=== PATIENT | female | born 1995 | race Caucasian/White ===

== ENCOUNTER 2016-12-12 13:12 | Outpatient (CLI) | payer MEDICAID ==
[~2016-12-12] VITALS: Ht 157.5 cm; Wt 50.3 kg
[2016-12-12 13:22] VITALS: BP 116/64; PULSE 72; RESP 20; Ht 157.5 cm; Wt 50.3 kg
[2016-12-12] MEDS ORDERED: PRENAT PO (13:25)
[2016-12-12] MEDS ORDERED: IRON1TAB77 PO (13:26)
[2016-12-12] MEDS: LACTATED RINGER'S 1,000 ML IV PRN ×2 (14:18→16:01)
[2016-12-12 14:30] LABS: ADD SCAN DIFF NO
[2016-12-12 14:32] LABS: BASOPHILS % 0.2 % (0.0-2.0); EOSINOPHILS % 0.7 % (0.0-7.0); HEMATOCRIT 36.2 % (37.0-47.0); LYMPHOCYTES # 1.2 10^3/ul (0.8-2.9); LYMPHOCYTES % 19.3 % (15.0-51.0); MEAN CORPUSCULAR HEMOGLOBIN 32.8 pg (29.0-33.0); MEAN CORPUSCULAR HGB CONC 33.1 g/dl (32.0-37.0); MEAN CORPUSCULAR VOLUME 98.9 fl (82.0-101.0); MEAN PLATELET VOLUME 10.8 fl (7.4-10.4); MONOCYTE # 0.8 10^3/ul (0.3-0.9); MONOCYTES % 13.9 % (0.0-11.0); NEUTROPHIL # 3.8 10^3/ul (1.6-7.5); NEUTROPHILS % 63.2 % (39.0-77.0); PLATELET COUNT 238 10^3/UL (140-415); RED BLOOD COUNT 3.66 10^6/ul (4.20-5.40); RED CELL DISTRIBUTION WIDTH 11.9 % (11.5-14.5)
[2016-12-12 14:38] LABS: ADD UMIC YES; URINE BILIRUBIN (Dip) 1+ (NEGATIVE); URINE BLOOD (Dip) NEGATIVE (NEGATIVE); URINE COLOR YELLOW (YELLOW); URINE GLUCOSE (Dip) NEGATIVE (NEGATIVE); URINE KETONES (Dip) TRACE (NEGATIVE); URINE LEUKOCYTE ESTERASE (Dip) TRACE (NEGATIVE); URINE NITRITE (Dip) NEGATIVE (NEGATIVE); URINE TOTAL PROTEIN (Dip) NEGATIVE (NEGATIVE); URINE UROBILINOGEN (Dip) 1.0 E.U./dL (0.1-1.0)
[2016-12-12 14:45] LABS: ALBUMIN 3.4 g/dl (3.3-4.9); ALBUMIN/GLOBULIN RATIO 1.03; BILIRUBIN,INDIRECT 0.2 mg/dl (0-1.1); BILIRUBIN,TOTAL 0.2 mg/dl (0.2-1.3); CALCIUM 8.8 mg/dl (8.4-10.2); CREATININE 0.51 mg/dl (0.44-1.00); POTASSIUM 4.1 mmol/L (3.5-5.1); TOTAL PROTEIN 6.7 g/dl (6.1-8.1)
[2016-12-12 14:47] LABS: ICTOTEST NEGATIVE (NEGATIVE)
[2016-12-12 14:49] LABS: BACTERIA,URINE RARE; SQUAMOUS EPITHELIAL CELL,UR MODERATE; URINE RBCS NONE SEEN /HPF (0)
--- NOTE | 2016-12-12 15:23 | RADRPT ---
PROCEDURE: CERVICAL LENGTH ULTRASOUND CLINICAL INDICATION: labor at 21 weeks gestational age. TECHNIQUE: Trans-vaginal imaging of the cervical canal was performed utilizing hutson-scale imaging. Sagittal and transverse images were obtained. Trans-abdominal images were also obtained. The radha ges were reviewed on a PACS workstation. COMPARISON: None. FINDINGS: There is a single live intrauterine . heart rate is 146 beats per minute. Position is cephalic and placenta is posterior grade 1. There is no placenta previa. The cervix is closed with a length of 3.6 cm. IMPRESSION: 1. Cervical length is 3.6 cm. RPTAT: QQ .Nestor Auguste MD, MD Date Time Electronically viewed and signed by .Nestor Auguste MD, on 12/12/2016 15:22 .R/
--- NOTE | 2016-12-12 17:04 | TRIAGE ---
OB Triage Datetime Report Generated by CPN: 12/12/2016 17:04 Datetime: 12/12/2016 16:01 Labor Evaluation Frequency: 0 Monitor Mode: External Pain Assessment Pain Scale: 0 Pain Presence: None/Denies Pain Type: N/A Pain Goal: 0 Vaginal Exam Membrane Status: Intact Datetime: 12/12/2016 15:00 Labor Evaluation Frequency: 0 Monitor Mode: External Pain Assessment Pain Scale: 0 Pain Type: N/A Pain Goal: 0 Vaginal Exam Membrane Status: Intact Datetime: 12/12/2016 14:00 Labor Evaluation Frequency: 0 Monitor Mode: External Heart Rate FHR Baseline Rate: 135 Monitor Mode: External US FHR Baseline Changes: No Baseline Change Variability: Moderate 6-25 bpm Accelerations: 15X15 Decelerations: None Category: Category I Pain Assessment Pain Scale: 6 Pain Presence: Constant Pain Type: Ache Pain Location: Head Pain Goal: 0 Datetime: 12/12/2016 13:30 Stage of : OB Triage Assessment Type: Triage EGA: 21.6 Maternal Assessment Level of Consciousness: Fully Conscious DTR's/Clonus: DTRs 2+; No Clonus Headache: Generalized Blurred Vision: No Respiratory Effort: Unlabored; Regular Rhythm; Equal Expansion Nausea/Vomiting: Denies RUQ Epigastric Pain: Denies Lower Extremities Edema: None Degree: None Upper Extremities Edema: None Degree: None Facial Edema: None Temperature Route: Axillary Fall Risk Assessment History of Falling: (0) No Secondary Diagnosis: (0) No Ambulatory Aid: (0) Bedrest/Nurse Assist IV Therapy: (0) No Gait: (0) Normal/Bedrest/Immobile Mental Status: (0) Oriented to Own Ability Fall Score: 0 Fall Risk Score Definition: No Risk: No action required Datetime: 12/12/2016 13:18 Stage of : OB Triage Headache: Generalized Monitor Mode: External Monitor Mode: External US Pain Assessment Pain Scale: 6 Pain Presence: Constant Pain Type: Ache Pain Location: Head Pain Goal: 0 Vaginal Exam Membrane Status: Intact Datetime: 12/12/2016 13:15 Time of Arrival: 12/12/2016 13:08 Arrived By: Stretcher Arrived From: Home Chief Complaint: DIARRHEA, HEADACHE, BODY ACHE Movement: Present Contractions: Denies/Absent Rupture of Membranes: Denies Vaginal Bleeding: None Vaginal Discharge: Denies Recent Sexual Intercouse: Denies Abdominal Trauma: Not Applicable Patient Complaints: Other Time Provider Notified: 12/12/2016 13:52 Provider Notified: DR. PAREDES Initial Plan: DOLLY JARRELL
--- NOTE | 2016-12-12 17:14 | QN ---
Documentation Comment 21-year-old with IUP at 21 weeks and 6 days with care with Dr. Gonzalez presented with complaint of headache and nausea and vomiting started 3 4 days ago as well as diarrhea and body aches. Patient had an episode of chills. Denies any fever, sick contact, leaking of fluid, vaginal bleeding, or decreased movement. Patient had episodes of nausea and vomiting today. She reports that she had some epigastric pain that currently resolved. Next currently had headache and body ache. physical examination. General appearance: Alert and oriented 4. Does not appear to be in any acute distress. Abdomen: Soft, gravid, fundal height consistent with gestational age Extremities: No calf tenderness, no click no edema Lungs: Clear to auscultation bilaterally CV: RRR Hematology - 72 Hrs Test 12/12/16 14:15 White Blood Count 6.010^3/ul (4.8-10.8) Red Blood Count 3.6610^6/ul (4.20-5.40) L Hemoglobin 12.0g/dl (12.0-16.0) Hematocrit 36.2% (37.0-47.0) L Mean Corpuscular Volume 98.9fl (82.0-101.0) Mean Corpuscular Hemoglobin 32.8pg (29.0-33.0) Mean Corpuscular Hemoglobin Concent 33.1g/dl (32.0-37.0) Red Cell Distribution Width 11.9% (11.5-14.5) Platelet Count 43510^3/UL (140-415) Mean Platelet Volume 10.8fl (7.4-10.4) H Neutrophils % 63.2% (39.0-77.0) Lymphocytes % 19.3% (15.0-51.0) Monocytes % 13.9% (0.0-11.0) H Eosinophils % 0.7% (0.0-7.0) Basophils % 0.2% (0.0-2.0) Nucleated Red Blood Cells % 0.0/100WBC (0.0-0.0) Neutrophils # 3.810^3/ul (1.6-7.5) Lymphocytes # 1.210^3/ul (0.8-2.9) Monocytes # 0.810^3/ul (0.3-0.9) Eosinophils # 0.010^3/ul (0.0-0.5) Basophils # 0.010^3/ul (0.0-0.1) Nucleated Red Blood Cells # 0.010^3/ul (0.0-0.0) Chemistry Test 12/12/16 14:15 Sodium Level 137mmol/L (135-144) Potassium Level 4.1mmol/L (3.5-5.1) Chloride Level 105mmol/L (97-110) Carbon Dioxide Level 25mmol/L (21-31) Anion Gap 11 (8-16) Blood Urea Nitrogen 8mg/dl (7-20) Creatinine 0.51mg/dl (0.44-1.00) Glucose Level 78mg/dl (70-220) Calcium Level 8.8mg/dl (8.4-10.2) Total Bilirubin 0.2mg/dl (0.2-1.3) Direct Bilirubin 0.00mg/dl (0.00-0.20) Indirect Bilirubin 0.2mg/dl (0-1.1) Aspartate Amino Transf (AST/SGOT) 99IU/L (15-46) H Alanine Aminotransferase (ALT/SGPT) 90IU/L (13-69) H Alkaline Phosphatase 106IU/L (42-121) Total Protein 6.7g/dl (6.1-8.1) Albumin 3.4g/dl (3.3-4.9) Globulin 3.30g/dl (1.3-3.2) H Albumin/Globulin Ratio 1.03 PROCEDURE: CERVICAL LENGTH ULTRASOUND CLINICAL INDICATION: labor at 21 weeks gestational age. TECHNIQUE: Trans-vaginal imaging of the cervical canal was performed utilizing hutson-scale imaging. Sagittal and transverse images were obtained. Trans-abdominal images were also obtained. The images were reviewed on a PACS workstation. COMPARISON: None. FINDINGS: There is a single live intrauterine . heart rate is 146 beats per minute. Position is cephalic and placenta is posterior grade 1. There is no placenta previa. The cervix is closed with a length of 3.6 cm. IMPRESSION: 1. Cervical length is 3.6 cm. Assessment: IUP at 21 weeks and 6 days Diarrhea, nausea, headache, body ache, symptoms related to viral gastroenteritis. Symptoms significantly improved with IV hydration and Tylenol No evidence of labor Plan: DC home Follow-up with her OB clinic in 3-4 days Prescription for Reglan 5 mg p.o. as needed nausea and vomiting as well as Imodium given. Advise about adequate hydration Return to triage if she has any fever, chills, increased symptoms, leaking of fluid, vaginal bleeding, or any other concerns. Patient verbalized understanding. MARIA ELENA HAMPTON MD Dec 12, 2016 17:14
== END 2016-12-12 16:55 | disposition home or self-care (01) ==
LOC: OBT 13:12 → L-D 13:14 → OBT 16:55
PROVIDERS: ATTEND Obstetrics & Gynecology
DX: O21.2 Late vomiting of pregnancy (principal); O26.892 Other specified pregnancy related conditions, second trimester; R68.83 Chills (without fever); Z3A.21 21 weeks gestation of pregnancy
CPT/HCPCS: 36415; 76817; 80053; 81001; 85025; 96360; 96361; Z7500; 81003; G0463

== ENCOUNTER 2016-12-24 13:43 | Emergency (ER) | payer MEDICAID ==
[~2016-12-24] VITALS: Ht 157.5 cm; Wt 50.9 kg
[~2016-12-24 13:43] MED LIST: IRON1TAB77 PO; PRENAT PO
[2016-12-24 13:56] VITALS: Ht 157.5 cm; Wt 50.9 kg
--- NOTE | 2016-12-24 14:23 | EN ---
Date/Time of Note Date/Time of Note DATE: 12/24/16 TIME: 14:17 ER Progress Note 21-year-old female patient, A1, with no significant past medical history presents to the ED complaining of itchiness all over her body that started 1 week ago, however denies having a rash. Patient reports that her RESEARCH TECHNICIAN is Dr. Obrien. States that her last menses was on July 13, 2016. Reports that she is about 23 weeks and 4 days into her . Denies any vaginal bleeding, vaginal discharge, nausea, vomiting, diarrhea, pelvic pain, abdominal pain, chest pain, shortness of breath. Patient was initially seen here at [facility] however will be sent to ED2 for further evaluation and treatment. Patient is hemodynamically stable. MARTHA SEYMOUR PA-C Dec 24, 2016 14:23
[2016-12-24 15:23] LABS: ADD SCAN DIFF NO
[2016-12-24 15:26] LABS: BASOPHIL # 0.1 10^3/ul (0.0-0.1); BASOPHILS % 0.5 % (0.0-2.0); EOSINOPHILS # 0.1 10^3/ul (0.0-0.5); EOSINOPHILS % 1.1 % (0.0-7.0); HEMATOCRIT 39.1 % (37.0-47.0); HEMOGLOBIN 12.3 g/dl (12.0-16.0); LYMPHOCYTES # 1.9 10^3/ul (0.8-2.9); LYMPHOCYTES % 19.4 % (15.0-51.0); MEAN CORPUSCULAR HGB CONC 31.5 g/dl (32.0-37.0); MEAN CORPUSCULAR VOLUME 98.5 fl (82.0-101.0); MEAN PLATELET VOLUME 10.9 fl (7.4-10.4); MONOCYTES % 9.6 % (0.0-11.0); NEUTROPHIL # 6.5 10^3/ul (1.6-7.5); NEUTROPHILS % 64.7 % (39.0-77.0); PLATELET COUNT 278 10^3/UL (140-415); RED BLOOD COUNT 3.97 10^6/ul (4.20-5.40); RED CELL DISTRIBUTION WIDTH 11.8 % (11.5-14.5)
[2016-12-24 15:26] LABS: ADD UMIC YES; UR BILIRUBIN (Dip) NEGATIVE (NEGATIVE); UR BLOOD (Dip) NEGATIVE (NEGATIVE); UR COLOR LT. YELLOW (YELLOW); UR GLUCOSE (Dip) NEGATIVE (NEGATIVE); UR KETONES (Dip) NEGATIVE (NEGATIVE); UR LEUKOCYTE ESTERASE (Dip) 1+ (NEGATIVE); UR NITRITE (Dip) NEGATIVE (NEGATIVE); UR TOTAL PROTEIN (Dip) NEGATIVE (NEGATIVE); UR UROBILINOGEN (Dip) 0.2 E.U./dL (0.1-1.0)
--- NOTE | 2016-12-24 15:33 | RADRPT ---
PROCEDURE: US OB. CLINICAL INDICATION: Size and dates , rash TECHNIQUE: Multiple sonographic images of the pelvis and gravid uterus were obtained. The images were reviewed on a PACS workstation. COMPARISON: No prior studies are available for comparison. FINDINGS: There is a single viable intrauterine gestation. Cardiac activity is present with 137 beats per min [place]. There is a vertex/variable presentation. The placenta is posterior. There is no evidence for an abruption or placenta previa. There is a normal amount of amniotic fluid with a MVP = 3.7 cm. Measurements were made in order to determine age. The results are as follows: BPD =5.6 cm HC =20.3 cm AC =18.4 cm FL =4.0 cm Estimated gestational age of approximately 22 weeks and 6 days based on ultrasound measurements. Clinical age: 23 weeks and 4 days. The estimated date of delivery is 04/23/17, based on ultrasound measurements. The EFW = 552 g, 18%, based on LMP age. RPTAT: AA IMPRESSION: Single viable intrauterine gestation of approximately 22 weeks and 6 days based on ultrasound measu rements. .Jeferson Kearns MD, MD Date Time Electronically viewed and signed by .Jeferson Kearns MD, on 12/24/2016 15:33 .S/
--- NOTE | 2016-12-24 15:34 | RADRPT ---
PROCEDURE: US Abdomen. CLINICAL INDICATION: abdominal pain TECHNIQUE: Multiple real-time images were acquired of the patient's right upper quadrant abdomen a nd retroperitoneum utilizing a high resolution transducer. COMPARISON: None FINDINGS: The liver demonstrates normal echogenicity. The liver is normal in size and no focal solid lesions are seen. The liver measures 12.6 cm in length. The portal vein is patent with normal direction of f low. No intrahepatic biliary dilatation is seen. No gallstones are identified within the gallbladder. There is layering echogenic material within th e gallbladder, consistent with sludge. There is no pericholecystic fluid or gallbladder wall thicke jose eduardo. The common bile duct measures 2 mm in maximal dimension. The visualized portions of the pancreas are unremarkable. The tail of the pancreas is not seen. No free fluid is identified. The right kidney is normal in size, and demonstrate normal echogenicity and cortical thickness. The right kidney measures 10.1 cm in long dimension. There is mild right-sided hydronephrosis. There a re no kidney stones. RPTAT: AA IMPRESSION: Moderate amount of sludge within the gallbladder. No evidence of gallbladder wall thickening or per icholecystic fluid. Mild right-sided hydronephrosis. .Jeferson Kearns MD, MD Date Time Electronically viewed and signed by .Jeferson Kearns MD, on 12/24/2016 15:34 .S/
[2016-12-24 15:35] LABS: ALBUMIN 3.6 g/dl (3.3-4.9)
[2016-12-24 15:38] LABS: BILIRUBIN,INDIRECT 0.3 mg/dl (0-1.1); BILIRUBIN,TOTAL 0.3 mg/dl (0.2-1.3); CREATININE 0.49 mg/dl (0.44-1.00); TOTAL PROTEIN 7.2 g/dl (6.1-8.1)
[2016-12-24 15:39] LABS: CALCIUM 9.1 mg/dl (8.4-10.2)
[2016-12-24 15:41] LABS: UR CLARITY SLIGHTLY CLOUDY (CLEAR)
[2016-12-24 15:42] LABS: UR BACTERIA FEW; UR SQUAMOUS EPITHELIAL CELL MODERATE; URINE RBCS NONE SEEN /HPF (0)
[2016-12-24] MEDS ORDERED: COLE625T2 PO (17:03)
[2016-12-24] MEDS ORDERED: URSO300C3 PO (17:03)
--- NOTE | 2016-12-24 17:09 | ERD ---
ER Documentation Chief Complaint Date/Time DATE: 12/24/16 TIME: 17:07 Chief Complaint ITCHINESS ALL OVER THE BODY HPI This 21-year-old female presents with itching over her whole body for the last few days. She denies any rashes. She is approximately 23 weeks by dates. Her OB provider is [facility] under Dr. Obrien. She denies any vaginal bleeding or abdominal pain, vomiting, cough, shortness of breath or chest pain. She is a G2 para 0 per ROS All systems reviewed and are negative except as per history of present illness. Medications Home Meds Active Scripts Colesevelam Hcl* (Welchol*) 625 Mg Tablet, 625 MG PO QID, #120 TAB Prov:LAISHA LAWSON MD 12/24/16 Ursodiol* (Ursodiol*) 300 Mg Capsule, 300 MG PO TID, #60 CAP Prov:LAISHA LAWSON MD 12/24/16 Reported Medications Iron,Carbonyl/Ascorbic Acid (IRON 100-VITAMIN C TABLET) 1 Each Tablet, 1 EACH PO , TAB 12/12/16 Multivit/Min/Fol Ac/Iron/Pren* ( S*) 1 Tab Tab, 1 TAB PO DAILY, TAB 12/12/16 Allergies Allergies: Coded Allergies: No Known Allergy (Unverified , 12/12/16) PMhx/Soc History of Surgery: No Anesthesia Reaction: No Hx Neurological Disorder: No Hx Respiratory Disorders: No Hx Cardiac Disorders: No Hx Psychiatric Problems: No Hx Miscellaneous Medical Probl: Yes (miscarriage 2010. A1) Hx Alcohol Use: No Hx Substance Use: No Physical Exam Vitals Vital Signs Date Time Temp Pulse Resp B/P Pulse Ox O2 Delivery O2 Flow Rate FiO2 12/24/16 13:56 97.8 72 18 112/60 98 Physical Exam Const: [] Alert, not ill-appearing. Head: Atraumatic Eyes: Normal Conjunctiva. No obvious icterus. ENT: Normal External Ears, Nose and Mouth. Neck: Full range of motion..~ No meningismus. Resp: Clear to auscultation bilaterally Cardio: Regular rate and rhythm, no murmurs Abd: Soft, non tender, non distended. Normal bowel sounds. There is a mass consistent with the second trimester . There is no tenderness and no Malave sign no tenderness at McBurney's point. Skin: No petechiae or rashes Back: No midline or flank tenderness Ext: No cyanosis, or edema Neur: Awake and alert Psych: Normal Mood and Affect Result Diagram: 12/24/16 1458 12/24/16 1458 Results 24 hrs Laboratory Tests Test 12/24/16 14:56 12/24/16 14:58 Urine Color LT. YELLOW Urine Clarity SLIGHTLY CLOUDY Urine pH 7.0 Urine Specific Sheldon 1.010 Urine Ketones NEGATIVE Urine Nitrite NEGATIVE Urine Bilirubin NEGATIVE Urine Urobilinogen 0.2 E.U./dL Urine Leukocyte Esterase 1+ Urine Microscopic RBC NONE SEEN/HPF Urine Microscopic WBC 5-10/HPF Urine Squamous Epithelial Cells MODERATE Urine Bacteria FEW Urine Yeast FEW Urine Hemoglobin NEGATIVE Urine Glucose NEGATIVE% Urine Total Protein NEGATIVE White Blood Count 10.010^3/ul Red Blood Count 3.9710^6/ul Hemoglobin 12.3g/dl Hematocrit 39.1% Mean Corpuscular Volume 98.5fl Mean Corpuscular Hemoglobin 31.0pg Mean Corpuscular Hemoglobin Concent 31.5g/dl Red Cell Distribution Width 11.8% Platelet Count 58064^3/UL Mean Platelet Volume 10.9fl Neutrophils % 64.7% Lymphocytes % 19.4% Monocytes % 9.6% Eosinophils % 1.1% Basophils % 0.5% Nucleated Red Blood Cells % 0.0/100WBC Neutrophils # 6.510^3/ul Lymphocytes # 1.910^3/ul Monocytes # 1.010^3/ul Eosinophils # 0.110^3/ul Basophils # 0.110^3/ul Nucleated Red Blood Cells # 0.010^3/ul Sodium Level 136mmol/L Potassium Level 4.0mmol/L Chloride Level 104mmol/L Carbon Dioxide Level 23mmol/L Anion Gap 13 Blood Urea Nitrogen 9mg/dl Creatinine 0.49mg/dl Glucose Level 89mg/dl Calcium Level 9.1mg/dl Total Bilirubin 0.3mg/dl Direct Bilirubin 0.00mg/dl Indirect Bilirubin 0.3mg/dl Aspartate Amino Transf (AST/SGOT) 167IU/L Alanine Aminotransferase (ALT/SGPT) 173IU/L Alkaline Phosphatase 108IU/L Total Protein 7.2g/dl Albumin 3.6g/dl Globulin 3.60g/dl Albumin/Globulin Ratio 1.00 Lipase 59U/L Procedures/MDM AST and ALT are elevated in the high 100s. CBC is normal. Urine shows trace leukocytes but shows many epithelial cells. Right upper quadrant ultrasound shows gallbladder sludge without evidence of cholecystitis or obstruction or gallstones. OB ultrasound shows a normal-appearing [address] Smith was called to discuss the case. He is recommending starting WelChol 625 mg every 6 hours and ursodiol 300 mg 3 times a day for presumptive treatment of cholestasis of . Is also requesting patient be transferred to labor and delivery for nonstress test. Patient will be advised to follow-up with her OB provider this week, otherwise further guidance will depend on labor and delivery's communication with Dr. Obrien. No current signs or symptoms of acute bacterial cholecystitis, acute abdomen, acute complications of . Departure Diagnosis: Primary Impression: Cholestasis during Additional Impression: Itching Condition: Stable Patient Instructions: : Your Second Trimester Changes Referrals: CAROL GRIGGS MD Additional Instructions: Examinations today show possible cholestasis of . Go to labor and delivery today for baby monitoring. See Dr. Ingram / care this week for follow-up. LAISHA LAWSON MD Dec 24, 2016 17:09
[2016-12-28 17:25] LABS: CHENODEOXYCHOLIC ACID 19.4 umol/L (< OR = 3.1); DEOXYCHOLIC ACID 1.8 umol/L (< OR = 2.4); TOTAL BILE ACIDS 54.2 umol/L (< OR = 6.8)
== END 2016-12-24 17:15 | disposition left against medical advice (07) ==
LOC: FTE 13:43
DX: O99.612 Diseases of the digestive system complicating pregnancy, second trimester (principal); L29.9 Pruritus, unspecified; K83.1 Obstruction of bile duct; Z3A.22 22 weeks gestation of pregnancy
CPT/HCPCS: 76705; 76805; 80053; 81001; 83690; 83789; 85025; Z7502; 81003

== ENCOUNTER 2016-12-24 17:33 | Outpatient (CLI) | payer MEDICAID ==
[~2016-12-24] VITALS: Ht 157.5 cm; Wt 51.0 kg
[~2016-12-24 17:33] MED LIST changes: +COLE625T2 PO; +URSO300C3 PO
[2016-12-24 17:54] VITALS: Ht 157.5 cm; Wt 51.0 kg
[2016-12-24 17:55] VITALS: BP 113/70; PULSE 56
--- NOTE | 2016-12-24 18:34 | PN ---
Date/Time of Note Date/Time of Note DATE: 12/24/16 TIME: 18:31 OB Subjective Subjective Subjective Patient is a 2 para 0 at 23.4 weeks of gestation She was seen in the ER and evaluated for cholestasis CBC and CMP was done in the ER She is here for NST OB Objective Objective Objective Patient reports positive movement, no leaking fluid, no vaginal bleeding, no contractions Patient with elevated/abnormal liver function tests HEENT: WNL Heart: Rhythm Normal Lungs: Clear, Equal Abdomen: WNL Extremities: Normal Reflexes: Normal Cervical Dilatation: None Heart Rate: 140's Accelerations: Accelerations Present Decelerations: No Decelerations Varibility: Moderate Contractions on Admission: None OB Assessment/Plan Other Assessment: 23+4 weeks of gestation rule out cholestasis Other plan: Bile acids to be drawn Patient to follow-up with her OB on , December 27, 2016 MARY ALICE DELGADO MD Dec 24, 2016 18:34
== END 2016-12-24 18:35 | disposition home or self-care (01) ==
LOC: OBT 17:33 → L-D 17:34 → OBT 18:35
PROVIDERS: ATTEND Obstetrics & Gynecology
DX: O26.892 Other specified pregnancy related conditions, second trimester (principal); R94.5 Abnormal results of liver function studies; O26.832 Pregnancy related renal disease, second trimester; Z3A.23 23 weeks gestation of pregnancy; N13.30 Unspecified hydronephrosis; O99.612 Diseases of the digestive system complicating pregnancy, second trimester; K82.8 Other specified diseases of gallbladder
CPT/HCPCS: 83789; Z7500; G0463

== ENCOUNTER 2017-01-24 12:21 | Outpatient (CLI) | payer MEDICAID ==
[~2017-01-24] VITALS: Ht 157.5 cm; Wt 51.9 kg
[2017-01-24 12:42] VITALS: BP 113/53; PULSE 65; RESP 20; Ht 157.5 cm; Wt 51.9 kg
--- NOTE | 2017-01-24 14:48 | RADRPT ---
PROCEDURE: US OB biophysical profile. CLINICAL INDICATION: decreased movements, pain TECHNIQUE: Multiple sonographic images of the pelvis were obtained. The images were reviewed on a PACS workstation. COMPARISON: 12/24/16 FINDINGS: There is a single viable intrauterine gestation. Cardiac activity is present with 137 beats per min suzie. There is a vertex presentation. The placenta is posterior. There is no evidence of placental abruption. There is a increased amount of amniotic fluid with an LOURDES = 21.9 cm. Biophysical profile: movement 2/2 tone 2/2. breathing 2/2 LOURDES 2/2 Total 04/09 RPTAT: AA . IMPRESSION: Normal biophysical profile. Mild polyhydramnios. . .Jeferson Kearns MD, Date Time Electronically viewed and signed by .Jeferson Kearns MD, MD on 01/24/2017 14:48 .S/
--- NOTE | 2017-01-24 15:07 | QN ---
Documentation Comment Sent in from clinic for cholestasis(Bile Acids>70) NST R BPP 04/09 will follow in 3 days CAROL GRIGGS MD January 24, 2017 15:07
== END 2017-01-24 15:00 | disposition home or self-care (01) ==
LOC: OBT 12:21 → L-D 12:23 → OBT 15:00
PROVIDERS: ATTEND Obstetrics & Gynecology
DX: O26.619 Liver and biliary tract disorders in pregnancy, unspecified trimester (principal); K83.1 Obstruction of bile duct; Z3A.00 Weeks of gestation of pregnancy not specified
CPT/HCPCS: 76818; Z7500; G0463

== ENCOUNTER 2017-01-28 08:43 | Outpatient (CLI) | payer MEDICAID ==
[~2017-01-28] VITALS: Ht 157.5 cm; Wt 48.2 kg
[2017-01-28 08:49] VITALS: BP 114/54; PULSE 69; RESP 18
--- NOTE | 2017-01-28 09:40 | RADRPT ---
PROCEDURE: OB ultrasound for biophysical profile CLINICAL INDICATION: Cholestasis TECHNIQUE: Multiple sonographic images of the pelvis were obtained. Transabdominal views of the g ravid uterus are available for review. The images were reviewed on a PACS workstation. COMPARISON: None FINDINGS: breathing movement = 2/2 tone = 2/2 motion = 2/2 LOURDES = 2/2 LOURDES = 19.1 cm Single live intrauterine with cardiac activity of 148 bpm. position is cephal ic. The placenta is posterior. IMPRESSION: 1. Single live intrauterine gestation. 2. Biophysical profile = 8. 3. LOURDES = 19.1 cm. RPTAT: HH .Terra Milligan MD, MD Date Time Electronically viewed and signed by .Terra Milligan MD, on 01/28/2017 09:40 .G/
--- NOTE | 2017-01-28 11:05 | PN ---
Date/Time of Note Date/Time of Note DATE: 01/28/17 TIME: 11:00 OB Subjective Subjective Subjective Patient is a 21-year-old 2 para 0 at 27+1 weeks of gestation diagnosed with cholestasis in Last bile acid level 79.7 Patient is currently on 2 different medications She presents today for NST and BPP She reports occasional contractions, positive movement, no leaking fluid, no vaginal bleeding OB Objective Objective Objective PROCEDURE: OB ultrasound for biophysical profile CLINICAL INDICATION: Cholestasis TECHNIQUE: Multiple sonographic images of the pelvis were obtained. Transabdominal views of the gravid uterus are available for review. The images were reviewed on a PACS workstation. COMPARISON: None FINDINGS: breathing movement = 2/2 tone = 2/2 motion = 2/2 LOURDES = 2/2 LOURDES = 19.1 cm Single live intrauterine with cardiac activity of 148 bpm. position is cephalic. The placenta is posterior. IMPRESSION: 1. Single live intrauterine gestation. 2. Biophysical profile = 8/8. 3. LOURDES = 19.1 cm. RPTAT: HH .Terra Milligan MD, Date Time Electronically viewed and signed by .Terra Milligan MD, MD on 01/28/2017 09 :40 .G/ CC: BERNARDO GEIGER MD HEENT: WNL Heart: Rhythm Normal Lungs: Clear, Equal Abdomen: WNL Extremities: Normal Reflexes: Normal Heart Rate: 140's Accelerations: Accelerations Present Decelerations: No Decelerations Varibility: Moderate Contractions on Admission: 6-10 Minutes Apart OB Assessment/Plan Other Assessment: 27+ weeks of gestation with cholestasis of Patient presents with contractions She is here for NST and BPP Other plan: We will obtain fibronectin test Patient should follow-up with her SHOE CLEANER in 2-3 days Patient to return for repeat NST and biophysical profile in 2 days in triage MARY ALICE DELGADO MD January 28, 2017 11:05
[2017-01-28] MEDS ORDERED: BETAMET NA PHOS/AC(6 MG/ML) 5ML INJ IM ONE (12:20)
[2017-01-28] MEDS: LACTATED RINGER'S 1,000 ML IV SCH ×2 (13:25→13:43)
--- NOTE | 2017-01-28 13:44 | RADRPT ---
PROCEDURE: Limited obstetric ultrasound CLINICAL INDICATION: Pain , PTL TECHNIQUE: Multiple transverse and longitudinal grayscale images of the pelvis were obtained silva sabdominally and transvaginally.. COMPARISON: same day FINDINGS: The cervix is closed with a length of 3.8 cm. There is a single viable intrauterine gestation. Cardiac activity is present with 148 beats per min suzie. The presentation is vertex. The placenta is posterior. There is no evidence for an abruption or placenta previa. RPTAT: AA IMPRESSION: Cervix length measures 3.8 cm. .Jeferson Kearns MD, Date Time Electronically viewed and signed by .Jeferson Kearns MD, on 01/28/2017 13:43 .S/
[2017-01-28] MEDS ORDERED: TERBUTALINE 1 MG/ML INJ SC ONE (14:00)
--- NOTE | 2017-01-28 15:47 | TRIAGE ---
OB Triage Datetime Report Generated by CPN: 01/28/2017 15:47 Datetime: 01/28/2017 15:31 Labor Evaluation Frequency: 0 Monitor Mode: External Quality: Mild Pattern: Normal: <= 5 Contractions in 10 Minutes Heart Rate FHR Baseline Rate: 145 FHR Baseline Changes: No Baseline Change Variability: Moderate 6-25 bpm Accelerations: 15X15 Decelerations: Variable Category: Category I Datetime: 01/28/2017 15:10 Monitor Mode: External Monitor Mode: External US Datetime: 01/28/2017 15:00 Labor Evaluation Frequency: x2 Monitor Mode: External Duration (sec)2399: 60-80 Quality: Mild Resting Tone [place]: Relaxed Contraction Comments: PT DENIES FEELING ANY CTX Heart Rate FHR Baseline Rate: 140 FHR Baseline Changes: No Baseline Change Variability: Moderate 6-25 bpm Accelerations: 15X15 Decelerations: Variable Pain Assessment Pain Scale: 0 Pain Presence: None/Denies Pain Type: N/A Datetime: 01/28/2017 14:40 Monitor Mode: External US Datetime: 01/28/2017 14:00 Labor Evaluation Frequency: 2-7 Monitor Mode: External Duration (sec)2399: 50-100 Quality: Mild Resting Tone [place]: Relaxed Contraction Comments: PT REPORTS NOT FEELING ANY CTX IN PAST HOUR. Heart Rate FHR Baseline Rate: 140 FHR Baseline Changes: No Baseline Change Variability: Moderate 6-25 bpm Accelerations: 15X15 Decelerations: None Datetime: 01/28/2017 13:02 Labor Evaluation Frequency: 2-10 Monitor Mode: External Duration (sec)2399: 50-70 Quality: Mild Resting Tone [place]: Relaxed Contraction Comments: PT REPORTS FEELING ONE CONTRACTIONS IN PAST HOUR. Monitor Mode: External US Comments: NOT ON MONITOR DUE TO MOVEMENT Datetime: 01/28/2017 11:45 Stage of : OB Triage Contraction Comments: PT REPORTS FEELING ONE CONTRACTION SINCE 1110. Datetime: 01/28/2017 10:40 Stage of : OB Triage Datetime: 01/28/2017 10:15 Labor Evaluation Frequency: OCCASIONAL Monitor Mode: External Duration (sec)2399: 60-70 Quality: Mild Pattern: Normal: <= 5 Contractions in 10 Minutes Resting Tone [place]: Relaxed Contraction Comments: PT DENIES FEELING UC'S Heart Rate FHR Baseline Rate: 145 Monitor Mode: External US FHR Baseline Changes: No Baseline Change Variability: Moderate 6-25 bpm Accelerations: 10X10 Decelerations: None Category: Category I Datetime: 01/28/2017 08:56 Stage of : OB Triage Assessment Type: Triage Maternal Assessment Level of Consciousness: Fully Conscious DTR's/Clonus: DTRs 2+; No Clonus Headache: Denies Blurred Vision: No Respiratory Effort: Unlabored; Regular Rhythm; Equal Expansion Breath Sounds, Left: Clear and Equal Breath Sounds, Right: Clear and Equal Nausea/Vomiting: Denies RUQ Epigastric Pain: Denies Lower Extremities Edema: None Upper Extremities Edema: None Facial Edema: None Temperature Route: Oral Fall Risk Assessment History of Falling: (0) No Secondary Diagnosis: (0) No Ambulatory Aid: (0) Bedrest/Nurse Assist IV Therapy: (0) No Gait: (0) Normal/Bedrest/Immobile Mental Status: (0) Oriented to Own Ability Fall Score: 0 Fall Risk Score Definition: No Risk: No action required Pain Assessment Pain Scale: 0 Pain Presence: None/Denies Pain Type: N/A Pain Goal: 2 Datetime: 01/28/2017 08:53 Time of Arrival: 01/28/2017 08:40 EGA: 27.1 Arrived By: Ambulatory Arrived From: Home Chief Complaint: BPP, NST FOR CHOLESTASIS Movement: Present Contractions: Denies/Absent Rupture of Membranes: Denies Vaginal Bleeding: None Vaginal Discharge: Denies Recent Sexual Intercouse: Denies Abdominal Trauma: Not Applicable Patient Complaints: Other Time Provider Notified: 01/28/2017 10:13 Provider Notified: MD GEIGER Initial Plan: BPP, _ NST Datetime: 01/24/2017 13:55 Labor Evaluation Frequency: 5-7 Monitor Mode: External Duration (sec)2399: 40-70 Pattern: Normal: <= 5 Contractions in 10 Minutes Heart Rate FHR Baseline Rate: 130 Monitor Mode: External US Variability: Moderate 6-25 bpm Accelerations: 15X15 Decelerations: None Category: Category I Datetime: 01/24/2017 12:49 Time of Arrival: 01/24/2017 12:11 EGA: 26.4 Arrived By: Ambulatory Arrived From: Home Chief Complaint: CHOLESTASIS FOLLOW UP Movement: Present Rupture of Membranes: Denies Vaginal Bleeding: None Vaginal Discharge: Denies Recent Sexual Intercouse: Denies Abdominal Trauma: Not Applicable Initial Plan: BPP, NST Datetime: 12/24/2016 18:26 Stage of : OB Triage Datetime: 12/24/2016 17:50 Stage of : OB Triage Assessment Type: Triage Maternal Assessment Level of Consciousness: Fully Conscious DTR's/Clonus: DTRs 2+; No Clonus Headache: Denies Blurred Vision: No Respiratory Effort: Unlabored; Regular Rhythm; Equal Expansion Breath Sounds, Left: Clear and Equal Breath Sounds, Right: Clear and Equal Nausea/Vomiting: Denies RUQ Epigastric Pain: Denies Facial Edema: None Temperature Route: Axillary Fall Risk Assessment History of Falling: (0) No Secondary Diagnosis: (0) No Ambulatory Aid: (0) Bedrest/Nurse Assist IV Therapy: (0) No Gait: (0) Normal/Bedrest/Immobile Mental Status: (0) Oriented to Own Ability Fall Score: 0 Fall Risk Score Definition: No Risk: No action required Labor Evaluation Frequency: 0 Monitor Mode: External Resting Tone [place]: Relaxed Heart Rate FHR Baseline Rate: 135 Monitor Mode: External US Variability: Moderate 6-25 bpm Decelerations: None Category: Category I Pain Assessment Pain Scale: 0 Pain Presence: None/Denies Pain Type: N/A Pain Goal: 3 Pain Relief Measures: Comfort Measures Datetime: 12/24/2016 17:49 Time of Arrival: 12/24/2016 17:20 EGA: 22.1 Arrived By: Ambulatory Arrived From: Emergency Dept Chief Complaint: SENT FROM ER AFTER EVAL FOR CHOLESTASIS, REFERRED FOR FM X 20 MIN, CALL TO DR CAM ADAIR ORDERS RECEIVED Movement: Present Contractions: Denies/Absent Rupture of Membranes: Denies Vaginal Bleeding: None Vaginal Discharge: Denies Recent Sexual Intercouse: Denies Abdominal Trauma: Not Applicable Time Provider Notified: 12/24/2016 18:26 Provider Notified: DANNY Initial Plan: MONITOR X 20 MIN, DRAW BILE ACIDS Datetime: 12/12/2016 13:30 EGA: 20.3 Fall Score: 0 Fall Risk Score Definition: No Risk: No action required
== END 2017-01-28 15:40 | disposition home or self-care (01) ==
LOC: L-D 08:43 → OBT 08:43
PROVIDERS: ATTEND Obstetrics & Gynecology
DX: O26.612 Liver and biliary tract disorders in pregnancy, second trimester (principal); K83.1 Obstruction of bile duct; Z3A.27 27 weeks gestation of pregnancy; O26.892 Other specified pregnancy related conditions, second trimester
CPT/HCPCS: 36415; 76817; 76818; 82731; 96360; 96361; 96372; J0702; J3105; Z7500; G0463

== ENCOUNTER 2017-01-29 12:06 | Outpatient (CLI) | payer MEDICAID ==
[~2017-01-29] VITALS: Ht 157.5 cm; Wt 53.7 kg
[2017-01-29 12:44] VITALS: BP 110/53; PULSE 86; Ht 157.5 cm; Wt 53.7 kg
[2017-01-29] MEDS ORDERED: BETAMET NA PHOS/AC(6 MG/ML) 5ML INJ IM ONE (13:00)
--- NOTE | 2017-01-29 15:54 | RADRPT ---
PROCEDURE: Limited obstetric ultrasound CLINICAL INDICATION: Pain TECHNIQUE: Multiple transverse and longitudinal grayscale images of the pelvis were obtained tra nsvaginally.. COMPARISON: 01/28/2017 FINDINGS: The cervix is closed with a length of 3.3 cm. RPTAT: AA IMPRESSION: Cervix length measures 3.3 cm. .Jeferson Kearns MD, MD Date Time Electronically viewed and signed by .Jeferson Kearns MD, MD on 01/29/2017 15:53 .S/
--- NOTE | 2017-01-29 17:50 | CONS ---
Date/Time of Note Date/Time of Note DATE: 01/29/17 TIME: 16:31 Consultation Date/Type/Reason Admit Date/Time January 29, 2017 OB triage consult Reason for Consultation This patient is a 21 years old 2 para 0 1 with estimated date of confinement of April 28, 2017 which makes her 27 weeks and 2 days. She received a dose of betamethasone yesterday and then will remove another dose of betamethasone today However in the triage area she began to have contractures. Due to scattered contractions she was monitored for 4 hours. We did feel some cramping on examination of abdomen She had a cervical length measured yesterday which was 3.8 cm Today on examination cervix was closed and appeared to be about 3 cm thick. The head was high. Membrane was intact heart tone appeared to be normal with fairly good variability no deceleration . We performed another cervical length today which came back 3.3 centimeters Current Medications Medications (Trade) Dose Ordered Sig/Nomi Route PRN Reason Start Time Stop Time Status Last Admin Dose Admin Betamethasone Acet/Betameth SodPhos (Celestone Soluspan) 12 mg ONCE ONCE IM 01/29/17 13:00 01/29/17 13:06 DC 01/29/17 13:51 12 MG Constitutional: No chills, No diaphoresis, No disoriented, No febrile, No improved, No no complaints, No other, No poor po, No requiring IVF, No requiring O2 Eyes: No discharge, No no complaints, No other, No pain, No redness, No visual change ENT: No bleeding, No congestion, No discharge, No dysphagia, No no complaints, No other, No pain, No sore throat Respiratory: No cough, No no complaints, No other, No pain, No pleuritic pain, No shortness of breath, No sputum, No wheezing Cardiovascular: No chest pain, No edema, No lightheadedness, No no complaints, No orthopenea, No other, No palpitations, No paroxysmal nocturnal dyspnea Gastrointestinal: No blood, No constipation, No decreased appetite, No diarrhea , No flatus, No nausea, No no complaints, No other, No pain, No passing stool, No vomiting Genitourinary: other (As I mentioned her cervix was closed fairly long no evidence of rupture of membranes), No bleeding, No discharge, No dysuria, No flank pain, No hematuria, No no complaints Musculoskeletal: No back pain, No bone/joint pain, No neck pain, No no complaints, No other, No restricted range of motion, No swelling Skin: No bruising, No erythema, No laceration, No no complaints, No other, No pruritis, No rash, No skin lesions Neurologic: No confusion, No dizziness, No focal-weakness, No headache, No no complaints, No other, No seizure, No syncope Endocrine: No dry skin, No no complaints, No other, No polydypsia, No polyuria , No temp intolerance Additional Comments Due to lack of further changes in the cervix and the fact that with hydration and terbutaline her contractions stopped; she was discharged home to return to the clinic in 7 days for follow-up She is recommended to return to the triage in case of labor or rupture of membranes or bleeding Social History Smoking Status: Never smoker Exam/Review of Systems Vital Signs Vitals Vital Signs Date Time Temp Pulse Resp B/P Pulse Ox O2 Delivery O2 Flow Rate FiO2 01/29/17 12:44 97.9 86 110/53 ISSA MORGAN MD January 29, 2017 17:50
== END 2017-01-29 16:40 | disposition home or self-care (01) ==
LOC: OBT 12:06 → L-D 12:07 → OBT 16:40
PROVIDERS: ATTEND Obstetrics & Gynecology
DX: O62.8 Other abnormalities of forces of labor (principal); Z3A.27 27 weeks gestation of pregnancy
CPT/HCPCS: 76817; 96372; J0702; Z7500; G0463

== ENCOUNTER 2017-01-31 10:00 | Outpatient (CLI) | payer BC, MEDICAID ==
[~2017-01-31] VITALS: Ht 157.5 cm; Wt 52.9 kg
[2017-01-31 10:06] VITALS: Ht 157.5 cm; Wt 52.9 kg
[2017-01-31] MEDS ORDERED: MAGNESIUM SULFATE 20 GM/500 ML 500 ML IV SCH (10:30)
--- NOTE | 2017-01-31 11:01 | RADRPT ---
PROCEDURE: OB ultrasound for biophysical profile CLINICAL INDICATION: Cholestasis TECHNIQUE: Multiple sonographic images of the pelvis were obtained. Transabdominal views of the g ravid uterus are available for review. The images were reviewed on a PACS workstation. COMPARISON: None FINDINGS: breathing movement = 2/2 tone = 2/2 motion = 2/2 LOURDES = 2/2 LOURDES = 15.0 cm Single live intrauterine with cardiac activity of 141 bpm. position is cephal ic. The placenta is posterior. IMPRESSION: 1. Single live intrauterine gestation. 2. Biophysical profile = 8/8. 3. LOURDES = 15.0 cm. RPTAT: HH .Terra Milligan MD, MD Date Time Electronically viewed and signed by .Terra Milligan MD, on 01/31/2017 11:01 .G/
--- NOTE | 2017-01-31 12:22 | TRIAGE ---
OB Triage Datetime Report Generated by CPN: 01/31/2017 12:22 Datetime: 01/31/2017 11:15 Labor Evaluation Frequency: x3 contractions noted in last hour Monitor Mode: External Duration (sec)2399: 60-100 Quality: Mild Pattern: Normal: <= 5 Contractions in 10 Minutes Resting Tone [place]: Relaxed Contraction Comments: Pt states some mild discomfort in abdominal area "once an hour". Heart Rate FHR Baseline Rate: 150 Monitor Mode: External US FHR Baseline Changes: No Baseline Change Variability: Moderate 6-25 bpm Accelerations: 15X15 Decelerations: None Category: Category I Comments: Appropriate for GA Pain Presence: None/Denies Datetime: 01/31/2017 10:15 Assessment Type: Triage Maternal Assessment Level of Consciousness: Fully Conscious DTR's/Clonus: DTRs 2+; No Clonus Headache: Denies Blurred Vision: No Respiratory Effort: Unlabored; Regular Rhythm; Equal Expansion Breath Sounds, Left: Clear and Equal Breath Sounds, Right: Clear and Equal Nausea/Vomiting: Denies RUQ Epigastric Pain: Denies Lower Extremities Edema: None Degree: None Upper Extremities Edema: None Degree: None Facial Edema: None Fall Risk Assessment History of Falling: (0) No Secondary Diagnosis: (0) No Ambulatory Aid: (0) Bedrest/Nurse Assist IV Therapy: (0) No Gait: (0) Normal/Bedrest/Immobile Mental Status: (0) Oriented to Own Ability Fall Score: 0 Fall Risk Score Definition: No Risk: No action required Datetime: 01/31/2017 10:07 Time of Arrival: 01/31/2017 09:55 EGA: 27.4 Arrived By: Ambulatory Arrived From: Home Chief Complaint: Follow up Cholestasis Movement: Present Contractions: Denies/Absent Rupture of Membranes: Denies Vaginal Bleeding: None Vaginal Discharge: Denies Recent Sexual Intercouse: Denies Abdominal Trauma: Not Applicable Patient Complaints: None Time Provider Notified: 01/31/2017 11:17 Provider Notified: Micah Initial Plan: NST, BPP/LOURDES Datetime: 01/31/2017 10:05 Stage of : OB Triage Datetime: 01/29/2017 16:26 Stage of : OB Triage Datetime: 01/29/2017 16:14 Stage of : OB Triage Datetime: 01/29/2017 16:07 Labor Evaluation Frequency: 0 Monitor Mode: External Resting Tone [place]: Relaxed Contraction Comments: DENIES FEELING, NONE NOTED Heart Rate FHR Baseline Rate: 145 Monitor Mode: External US Variability: Moderate 6-25 bpm Decelerations: None Category: Category I Pain Assessment Pain Scale: 0 Pain Presence: None/Denies Pain Type: N/A Pain Goal: 3 Pain Relief Measures: Comfort Measures Datetime: 01/29/2017 15:22 Stage of : OB Triage Datetime: 01/29/2017 15:11 Labor Evaluation Frequency: 6-8 Monitor Mode: External Duration (sec)2399: 30-40 Pattern: Normal: <= 5 Contractions in 10 Minutes Resting Tone [place]: Relaxed Contraction Comments: STATES FEELS MILDLY Heart Rate FHR Baseline Rate: 135 Monitor Mode: External US Variability: Moderate 6-25 bpm Accelerations: 10X10 Decelerations: None Category: Category I Pain Assessment Pain Scale: 2 Pain Presence: Intermittent Pain Type: Cramping Pain Location: Abdomen Pain Goal: 3 Pain Relief Measures: Comfort Measures Datetime: 01/29/2017 14:25 Labor Evaluation Frequency: 7-15 Monitor Mode: External Duration (sec)2399: 15-30 Quality: Mild Pattern: Normal: <= 5 Contractions in 10 Minutes Resting Tone [place]: Relaxed Contraction Comments: DENIES FEELING, Heart Rate FHR Baseline Rate: 135 Monitor Mode: External US Variability: Moderate 6-25 bpm Decelerations: None Category: Category I Pain Assessment Pain Scale: 1 Pain Presence: None/Denies Pain Type: N/A Pain Goal: 3 Pain Relief Measures: Comfort Measures Datetime: 01/29/2017 13:39 Stage of : OB Triage Datetime: 01/29/2017 13:02 Stage of : OB Triage Assessment Type: Triage Maternal Assessment Level of Consciousness: Fully Conscious DTR's/Clonus: DTRs 2+; No Clonus Headache: Denies Blurred Vision: No Respiratory Effort: Unlabored; Regular Rhythm; Equal Expansion Breath Sounds, Left: Clear and Equal Breath Sounds, Right: Clear and Equal Nausea/Vomiting: Denies RUQ Epigastric Pain: Denies Facial Edema: None Temperature Route: Axillary Fall Risk Assessment History of Falling: (0) No Secondary Diagnosis: (0) No Ambulatory Aid: (0) Bedrest/Nurse Assist IV Therapy: (0) No Gait: (0) Normal/Bedrest/Immobile Mental Status: (0) Oriented to Own Ability Fall Score: 0 Fall Risk Score Definition: No Risk: No action required Labor Evaluation Frequency: 0 Monitor Mode: External Resting Tone [place]: Relaxed Monitor Mode: External US Pain Assessment Pain Scale: 0 Pain Presence: None/Denies Pain Type: N/A Pain Goal: 3 Pain Relief Measures: Comfort Measures Datetime: 01/29/2017 13:01 Time of Arrival: 01/29/2017 12:03 EGA: 27.2 Arrived By: Ambulatory Arrived From: Home Chief Complaint: FOLLOW UP BETAMETHASONE INJECTION #2 Movement: Present Contractions: Denies/Absent Rupture of Membranes: Denies Vaginal Discharge: Denies Recent Sexual Intercouse: Denies Abdominal Trauma: Not Applicable Time Provider Notified: 01/29/2017 13:39 Provider Notified: REICHE Initial Plan: MONITOR, BETAMETHASONE INJECTION, CL Datetime: 01/28/2017 08:56 Fall Score: 0 Fall Risk Score Definition: No Risk: No action required Datetime: 01/28/2017 08:53 EGA: 27.1 Datetime: 01/24/2017 12:49 EGA: 26.4 Contractions: Occasional Time Provider Notified: 01/31/2017 11:17 Provider Notified: Micah Datetime: 12/24/2016 17:50 Fall Score: 0 Fall Risk Score Definition: No Risk: No action required Datetime: 12/24/2016 17:49 EGA: 22.1 Datetime: 12/12/2016 13:30 EGA: 20.3 Fall Score: 0 Fall Risk Score Definition: No Risk: No action required
--- NOTE | 2017-01-31 13:40 | CONS ---
Date/Time of Note Date/Time of Note DATE: 01/31/17 TIME: 13:34 Consultation Date/Type/Reason Admit Date/Time January 31, 2007 OB triage consult follow-up visit Initial Consult Date This patient is a 21 years old 2 para 0 1 with estimated date of confinement of April 28, 2017 which makes her 27 weeks and 4 days. She came to the triage for follow-up on her cholestasis condition during this Today her main complaint is pruritus on her lower extremity especially on her feet currently she is taking ursodiol 300 mg 3 times daily. She also help pruritus of hands and chest On examination she is a fairly stable condition in her Her vital signs appears to be normal. Her blood pressure 119/59, pulse rate 73 , respiration 18, and temperature 98.3. At this time she does not have much of the contractions. We did an ultrasound study. The report is single live intrauterine cardiac activity of 1 41 bpm in vertex presentation her biophysical profile is reported 8 over. Her LOURDES is 15 cm Current Medications Medications (Trade) Dose Ordered Sig/Nomi Route PRN Reason Start Time Stop Time Status Last Admin Dose Admin Magnesium Sulfate (Magnesium Sulfate 20 Gm/500 ml) 500 ml @ 50 mls/hr Q10H IV 01/31/17 10:30 01/31/17 10:36 DC Reason for Consultation With these positive finding patient was discharged home to be followed in the clinic she will continue taking her medication for her cholestasis. End of dictation ISSA MORGAN MD Jan 31, 2017 13:40
== END 2017-01-31 12:15 | disposition home or self-care (01) ==
LOC: OBT 10:00 → L-D 10:01 → OBT 12:15
PROVIDERS: ATTEND Obstetrics & Gynecology
DX: O26.612 Liver and biliary tract disorders in pregnancy, second trimester (principal); K83.1 Obstruction of bile duct; Z3A.27 27 weeks gestation of pregnancy
CPT/HCPCS: 76818; Z7500; G0463

== ENCOUNTER 2017-02-04 10:59 | Outpatient (CLI) | payer BC ==
[~2017-02-04] VITALS: Ht 157.5 cm; Wt 52.7 kg
[2017-02-04 12:22] VITALS: Ht 157.5 cm; Wt 52.7 kg
[2017-02-04 12:23] VITALS: BP 138/63; PULSE 86; RESP 18
--- NOTE | 2017-02-04 13:18 | RADRPT ---
PROCEDURE: US OB biophysical profile. CLINICAL INDICATION: evaluation TECHNIQUE: Multiple sonographic images of the pelvis were obtained. The images were reviewed on a PACS workstation. COMPARISON: Obstetrical ultrasound from 01/31/2017 FINDINGS: There is a single viable intrauterine gestation. Cardiac activity is present with 126 beats per min suzie. There is a vertex presentation. The placenta is posterior. There is no evidence of placental abruption. There is a normal amount of amniotic fluid with an LOURDES = 11.5 cm. Biophysical profile: movement 2/2 tone 2/2. breathing 2/2 LOURDES 2/2 Total 04/09 RPTAT: AA . IMPRESSION: Normal biophysical profile. Physician Justin Date Time Electronically viewed and signed by Physician Justin on 02/04/2017 13:18 /
--- NOTE | 2017-02-04 14:53 | QN ---
Documentation Comment iup 29 weeks cholestasis vss exam wnl us wnl nst reacive a/p iup 29 weeks cholestasis of dc waterproof TOPHER SYKES MD Feb 04, 2017 14:53
== END 2017-02-04 14:25 | disposition home or self-care (01) ==
LOC: OBT 10:59 → L-D 11:04 → OBT 14:25
PROVIDERS: ATTEND Obstetrics & Gynecology
DX: O26.613 Liver and biliary tract disorders in pregnancy, third trimester (principal); K83.1 Obstruction of bile duct; Z3A.29 29 weeks gestation of pregnancy
CPT/HCPCS: 76818; Z7500; G0463

== ENCOUNTER 2017-02-07 10:17 | Outpatient (CLI) | payer BC ==
[~2017-02-07] VITALS: Ht 157.5 cm; Wt 53.1 kg
[2017-02-07 10:28] VITALS: Ht 157.5 cm; Wt 53.1 kg
[2017-02-07 10:29] VITALS: BP 120/64; PULSE 83
--- NOTE | 2017-02-07 11:42 | RADRPT ---
PROCEDURE: OB ultrasound for biophysical profile CLINICAL INDICATION: Cholestasis TECHNIQUE: Multiple sonographic images of the pelvis were obtained. Transabdominal views of the g ravid uterus are available for review. The images were reviewed on a PACS workstation. COMPARISON: Biophysical profile dated 02/04/2017 FINDINGS: breathing movement = 2/2 tone = 2/2 motion = 2/2 LOURDES = 2/2 LOURDES = 13.2 cm Single live intrauterine with cardiac activity of 148 bpm. position is cephal ic. The placenta is posterior. IMPRESSION: 1. Single live intrauterine gestation. 2. Biophysical profile = 04/09. 3. LOURDES = 13.2 cm. RPTAT: HH .Terra Milligan MD, MD Date Time Electronically viewed and signed by .Terra Milligan MD, on 02/07/2017 11:42 .G/
[2017-02-07] MEDS ORDERED: TERBUTALINE 1 MG/ML INJ SC ONE ×2 (12:00→15:00)
[2017-02-07] MEDS ORDERED: LACTATED RINGER'S 1,000 ML IV SCH (12:00)
[2017-02-07 12:39] LABS: ADD SCAN DIFF NO
[2017-02-07 12:49] LABS: ABNORMAL IP MESSAGE 1; HEMATOCRIT 36.8 % (37.0-47.0); HEMOGLOBIN 12.4 g/dl (12.0-16.0); MEAN CORPUSCULAR HEMOGLOBIN 32.3 pg (29.0-33.0); MEAN CORPUSCULAR HGB CONC 33.7 g/dl (32.0-37.0); MEAN CORPUSCULAR VOLUME 95.8 fl (82.0-101.0); MEAN PLATELET VOLUME 10.8 fl (7.4-10.4); MONOCYTE # 1.2 10^3/ul (0.3-0.9); PLATELET COUNT 318 10^3/UL (140-415); RED BLOOD COUNT 3.84 10^6/ul (4.20-5.40); RED CELL DISTRIBUTION WIDTH 11.9 % (11.5-14.5); WHITE BLOOD COUNT 16.6 10^3/ul (4.8-10.8)
[2017-02-07 12:56] LABS: ADD UMIC YES; URINE BILIRUBIN (Dip) NEGATIVE (NEGATIVE); URINE BLOOD (Dip) NEGATIVE (NEGATIVE); URINE COLOR LT. YELLOW (YELLOW); URINE GLUCOSE (Dip) NEGATIVE (NEGATIVE); URINE KETONES (Dip) NEGATIVE (NEGATIVE); URINE LEUKOCYTE ESTERASE (Dip) 1+ (NEGATIVE); URINE NITRITE (Dip) NEGATIVE (NEGATIVE); URINE TOTAL PROTEIN (Dip) NEGATIVE (NEGATIVE); URINE UROBILINOGEN (Dip) 0.2 E.U./dL (0.1-1.0)
[2017-02-07 13:01] LABS: ALBUMIN/GLOBULIN RATIO 1.34
[2017-02-07 13:04] LABS: BILIRUBIN,INDIRECT 0.1 mg/dl (0-1.1); BILIRUBIN,TOTAL 0.1 mg/dl (0.2-1.3); CALCIUM 9.5 mg/dl (8.4-10.2); CREATININE 0.45 mg/dl (0.44-1.00); POTASSIUM 3.6 mmol/L (3.5-5.1); TOTAL PROTEIN 6.8 g/dl (6.1-8.1)
[2017-02-07 13:05] LABS: ALBUMIN 3.9 g/dl (3.3-4.9)
[2017-02-07 13:25] LABS: BACTERIA,URINE RARE; URINE RBCS NONE SEEN /HPF (0)
--- NOTE | 2017-02-07 14:05 | RADRPT ---
PROCEDURE: Limited obstetric ultrasound CLINICAL INDICATION: Pain , labor TECHNIQUE: Multiple transverse and longitudinal grayscale images of the pelvis were obtained silva sabdominally and transvaginally.. COMPARISON: same day FINDINGS: The cervix is closed with a length of 3.0 cm. There is a single viable intrauterine gestation. Cardiac activity is present with 139 beats per min suzie. There is a vertex presentation. The placenta is posterior. There is no evidence for an abruption or placenta previa. RPTAT: AA IMPRESSION: Cervix length measures 3.0 cm. .Jeferson Kearns MD, Date Time Electronically viewed and signed by .Jeferson Kearns MD, on 02/07/2017 14:05 .S/
[2017-02-07 14:32] LABS: LYMPHOCYTES # 2.3 10^3/ul (0.8-2.9); NEUTROPHIL # 12.5 10^3/ul (1.6-7.5); PLATELET ESTIMATE PLT APPEAR ADEQUATE
--- NOTE | 2017-02-07 20:00 | CONS ---
Date/Time of Note Date/Time of Note DATE: 02/07/17 TIME: 19:50 Consultation Date/Type/Reason Admit Date/Time February 07, 2017 OB triage consult Reason for Consultation This patient is a 21 years old primigravida with estimated date of confinement of April 28, 2017 which makes her 28 weeks and 4 days She developed cholestasis of and is placed on Actigall 300 mg every 8 hours . . On physical examination, her general vital signs were basically within normal limits with blood pressure of 120/64 pulse rate 83, respiration 18, and temperature 95.1 She was not having any contractions , abdomen was soft heart tone was normal. Laboratory Tests Test 02/07/17 11:55 02/07/17 12:14 Urine Color LT. YELLOW Urine Clarity CLEAR Urine pH 6.0 Urine Specific [place] <=1.005 Urine Ketones NEGATIVE Urine Nitrite NEGATIVE Urine Bilirubin NEGATIVE Urine Urobilinogen 0.2 E.U./dL Urine Leukocyte Esterase 1+ Urine Microscopic RBC NONE SEEN/HPF Urine Microscopic WBC 0-2/HPF Urine Bacteria RARE Urine Hemoglobin NEGATIVE Urine Glucose NEGATIVE% Urine Total Protein NEGATIVE White Blood Count 16.610^3/ul Red Blood Count 3.8410^6/ul Hemoglobin 12.4g/dl Hematocrit 36.8% Mean Corpuscular Volume 95.8fl Mean Corpuscular Hemoglobin 32.3pg Mean Corpuscular Hemoglobin Concent 33.7g/dl Red Cell Distribution Width 11.9% Platelet Count 95912^3/UL Mean Platelet Volume 10.8fl Neutrophils % 75.0% Lymphocytes % 14.0% Monocytes % 7.0% Eosinophils % 0.0% Basophils % 0.0% Nucleated Red Blood Cells % 0.0/100WBC Neutrophils # 12.510^3/ul Lymphocytes # 2.310^3/ul Monocytes # 1.210^3/ul Eosinophils # 0.010^3/ul Basophils # 0.010^3/ul Nucleated Red Blood Cells # 0.010^3/ul Platelet Estimate PLT APPEAR ADEQUATE Sodium Level 138mmol/L Potassium Level 3.6mmol/L Chloride Level 108mmol/L Carbon Dioxide Level 24mmol/L Anion Gap 10 Blood Urea Nitrogen 6mg/dl Creatinine 0.45mg/dl Glucose Level 73mg/dl Calcium Level 9.5mg/dl Total Bilirubin 0.1mg/dl Direct Bilirubin 0.00mg/dl Indirect Bilirubin 0.1mg/dl Aspartate Amino Transf (AST/SGOT) 18IU/L Alanine Aminotransferase (ALT/SGPT) 32IU/L Alkaline Phosphatase 102IU/L Total Protein 6.8g/dl Albumin 3.9g/dl Globulin 2.90g/dl Albumin/Globulin Ratio 1.34 Current Medications Medications (Trade) Dose Ordered Sig/Nomi Route PRN Reason Start Time Stop Time Status Last Admin Dose Admin Lactated Ringer's (Lr) 1,000 ml @ 125 mls/hr Q8H IV 02/07/17 12:00 02/07/17 17:27 DC 02/07/17 12:11 125 MLS/HR Terbutaline Sulfate (Brethine) 0.25 mg ONCE ONCE SC 02/07/17 12:00 02/07/17 12:03 DC 02/07/17 12:12 0.25 MG Terbutaline Sulfate (Brethine) 0.25 mg ONCE ONCE SC 02/07/17 15:00 02/07/17 15:01 DC 02/07/17 15:07 0.25 MG Constitutional: No chills, No diaphoresis, No disoriented, No febrile, No improved, No no complaints, No other, No poor po, No requiring IVF, No requiring O2 Eyes: No discharge, No no complaints, No other, No pain, No redness, No visual change ENT: No bleeding, No congestion, No discharge, No dysphagia, No no complaints, No other, No pain, No sore throat Respiratory: No cough, No no complaints, No other, No pain, No pleuritic pain, No shortness of breath, No sputum, No wheezing Cardiovascular: No chest pain, No edema, No lightheadedness, No no complaints, No orthopenea, No other, No palpitations, No paroxysmal nocturnal dyspnea Gastrointestinal: No blood, No constipation, No decreased appetite, No diarrhea , No flatus, No nausea, No no complaints, No other, No pain, No passing stool, No vomiting Genitourinary: other (Pelvic exam was not performed), No bleeding, No discharge, No dysuria, No flank pain, No hematuria, No no complaints Musculoskeletal: No back pain, No bone/joint pain, No neck pain, No no complaints, No other, No restricted range of motion, No swelling Skin: other (No edema of hands or legs the palm of the hands and the soles of the feet did not show any erythema or pruritus), No bruising, No erythema, No laceration, No no complaints, No pruritis, No rash, No skin lesions Neurologic: other (Knee-jerk reflex were), seizure, No confusion, No dizziness, No focal-weakness, No headache, No no complaints , No syncope Endocrine: other, No dry skin, No no complaints, No polydypsia, No polyuria, No temp intolerance Additional Comments Her lab studies were basically normal : CBC was within normal limits, liver profile, electrolytes were all normal.. Urinalysis was completely normal no evidence of proteinuria or UTI. On ultrasound study a single live intrauterine with heart activity 148 bpm ,cephalic presentation LOURDES was 13.2 cm. Biophysical profile was 04/09 Cervical length was reported as 3 cm Disposition.: In view of completely normal physical and laboratory on ultrasound study patient was discharged home to be followed in her clinic and to return if any complications , and for follow-up of her cholestasis of . Social History Smoking Status: Never smoker Exam/Review of Systems Vital Signs Vitals Vital Signs Date Time Temp Pulse Resp B/P Pulse Ox O2 Delivery O2 Flow Rate FiO2 02/07/17 10:29 98.1 83 120/64 Results Result Diagram: 02/07/17 1214 02/07/17 1214 Results 24 hrs Laboratory Tests Test 02/07/17 11:55 02/07/17 12:14 Urine Color LT. YELLOW Urine Clarity CLEAR Urine pH 6.0 Urine Specific [place] <=1.005 L Urine Ketones NEGATIVE Urine Nitrite NEGATIVE Urine Bilirubin NEGATIVE Urine Urobilinogen 0.2 E.U./dL Urine Leukocyte Esterase 1+ H Urine Microscopic RBC NONE SEEN Urine Microscopic WBC 0-2 Urine Bacteria RARE Urine Hemoglobin NEGATIVE Urine Glucose NEGATIVE Urine Total Protein NEGATIVE White Blood Count 16.6 #H Red Blood Count 3.84 L Hemoglobin 12.4 Hematocrit 36.8 L Mean Corpuscular Volume 95.8 Mean Corpuscular Hemoglobin 32.3 Mean Corpuscular Hemoglobin Concent 33.7 Red Cell Distribution Width 11.9 Platelet Count 318 Mean Platelet Volume 10.8 H Neutrophils % 75.0 Lymphocytes % 14.0 L Monocytes % 7.0 Eosinophils % 0.0 Basophils % 0.0 Nucleated Red Blood Cells % 0.0 Neutrophils # 12.5 H Lymphocytes # 2.3 Monocytes # 1.2 H Eosinophils # 0.0 Basophils # 0.0 Nucleated Red Blood Cells # 0.0 Platelet Estimate PLT APPEAR ADEQUATE Sodium Level 138 Potassium Level 3.6 Chloride Level 108 Carbon Dioxide Level 24 Anion Gap 10 Blood Urea Nitrogen 6 L Creatinine 0.45 Glucose Level 73 Calcium Level 9.5 Total Bilirubin 0.1 L Direct Bilirubin 0.00 Indirect Bilirubin 0.1 Aspartate Amino Transf (AST/SGOT) 18 Alanine Aminotransferase (ALT/SGPT) 32 Alkaline Phosphatase 102 Total Protein 6.8 Albumin 3.9 Globulin 2.90 Albumin/Globulin Ratio 1.34 ISSA MORGAN MD Feb 07, 2017 20:00
== END 2017-02-07 17:26 | disposition home or self-care (01) ==
LOC: OBT 10:17 → L-D 10:17 → OBT 17:26
PROVIDERS: ATTEND Obstetrics & Gynecology
DX: O26.613 Liver and biliary tract disorders in pregnancy, third trimester (principal); K83.1 Obstruction of bile duct; O60.03 Preterm labor without delivery, third trimester; Z3A.28 28 weeks gestation of pregnancy
CPT/HCPCS: 36415; 76817; 76818; 80053; 81001; 85025; 96360; 96372; J3105; J7120; Z7500; G0463

== ENCOUNTER 2017-02-11 11:21 | Outpatient (CLI) | payer BC ==
[~2017-02-11] VITALS: Ht 157.5 cm; Wt 53.4 kg
[2017-02-11 11:41] VITALS: BP 121/66; PULSE 77; RESP 24; Ht 157.5 cm; Wt 53.4 kg
--- NOTE | 2017-02-11 12:23 | RADRPT ---
PROCEDURE: OB ultrasound for biophysical profile CLINICAL INDICATION: Biophysical profile. . TECHNIQUE: Multiple sonographic images of the pelvis were obtained. Transabdominal 02/07/2017 vie ws are obtained. COMPARISON: 02/07/2017 FINDINGS: Single intrauterine gestation. Presentation: Cephalic. Placenta: Posterior No evidence of placental abruption. No evidence of placenta previa. breathing movement = 2/2 tone = 2/2 motion = 2/2 LOURDES = 2/2 LOURDES = 13.4 cm heart rate: 144 beats per minute IMPRESSION: Single intrauterine gestation. Biophysical profile 04/09 RPTAT: AADD .Freddie Higgins MD, MD Date Time Electronically viewed and signed by .Freddie Higgins MD, on 02/11/2017 12:22 .B/
[2017-02-11] MEDS ORDERED: CALC600T11 PO (13:13)
--- NOTE | 2017-02-11 13:22 | QN ---
Documentation Comment iup 29 weeks cholestasis pt asymptomatic vss nst reactive a/p iup 29 weeks cholestatis dc [place] TOPHER SYKES MD Feb 11, 2017 13:22
--- NOTE | 2017-02-11 13:43 | TRIAGE ---
OB Triage Datetime Report Generated by CPN: 02/11/2017 13:42 Datetime: 02/11/2017 13:41 Stage of : OB Triage Maternal Assessment Level of Consciousness: Fully Conscious DTR's/Clonus: DTRs 2+; No Clonus Headache: Denies Blurred Vision: No Respiratory Effort: Unlabored; Regular Rhythm; Equal Expansion Breath Sounds, Left: Clear and Equal Breath Sounds, Right: Clear and Equal Nausea/Vomiting: Denies RUQ Epigastric Pain: Denies Lower Extremities Edema: None Degree: None Upper Extremities Edema: None Degree: None Facial Edema: None Temperature Route: Axillary Fall Risk Assessment History of Falling: (0) No Secondary Diagnosis: (0) No Ambulatory Aid: (0) Bedrest/Nurse Assist IV Therapy: (0) No Gait: (0) Normal/Bedrest/Immobile Mental Status: (0) Oriented to Own Ability Fall Score: 0 Fall Risk Score Definition: No Risk: No action required Datetime: 02/11/2017 13:09 Time of Arrival: 02/11/2017 11:05 EGA: 29.1 Arrived By: Ambulatory Arrived From: Home Chief Complaint: F/U CHOLESTASIS Movement: Present Contractions: Denies/Absent Rupture of Membranes: Denies Vaginal Bleeding: None Vaginal Discharge: Denies Recent Sexual Intercouse: Denies Abdominal Trauma: Not Applicable Time Provider Notified: 02/11/2017 13:04 Provider Notified: DR. PAREDES Initial Plan: BPP, NST Datetime: 02/07/2017 17:13 Stage of : OB Triage Datetime: 02/07/2017 16:50 Labor Evaluation Frequency: 0 Monitor Mode: External Resting Tone [place]: Relaxed Heart Rate FHR Baseline Rate: 155 Monitor Mode: External US Variability: Moderate 6-25 bpm Decelerations: None Category: Category I Pain Assessment Pain Scale: 0 Pain Presence: None/Denies Pain Type: N/A Pain Goal: 3 Pain Relief Measures: Comfort Measures Datetime: 02/07/2017 16:22 Stage of : OB Triage Datetime: 02/07/2017 15:55 Labor Evaluation Frequency: 0 Monitor Mode: External Quality: Mild Pattern: Normal: <= 5 Contractions in 10 Minutes Resting Tone [place]: Relaxed Heart Rate FHR Baseline Rate: 145 Monitor Mode: External US Variability: Moderate 6-25 bpm Decelerations: None Category: Category I Pain Assessment Pain Scale: 0 Pain Presence: None/Denies Pain Type: N/A Pain Goal: 3 Pain Relief Measures: Comfort Measures Datetime: 02/07/2017 14:43 Stage of : OB Triage Datetime: 02/07/2017 14:30 Labor Evaluation Frequency: 8-10 Monitor Mode: External Duration (sec)2399: 50-70 Pattern: Normal: <= 5 Contractions in 10 Minutes Resting Tone [place]: Relaxed Heart Rate FHR Baseline Rate: 145 Monitor Mode: External US Variability: Moderate 6-25 bpm Accelerations: 10X10 Decelerations: None Category: Category I Pain Assessment Pain Scale: 2 Pain Presence: None/Denies Pain Type: N/A Pain Goal: 3 Pain Relief Measures: Comfort Measures Datetime: 02/07/2017 13:27 Labor Evaluation Frequency: 8-10 Monitor Mode: External Duration (sec)2399: 50-60 Pattern: Normal: <= 5 Contractions in 10 Minutes Resting Tone [place]: Relaxed Heart Rate FHR Baseline Rate: 140 Monitor Mode: External US Variability: Moderate 6-25 bpm Accelerations: 10X10 Decelerations: None Category: Category I Pain Assessment Pain Scale: 2 Pain Presence: Intermittent Pain Type: Cramping Pain Goal: 3 Pain Relief Measures: Comfort Measures Datetime: 02/07/2017 12:36 Labor Evaluation Frequency: 0 Monitor Mode: External Pattern: Normal: <= 5 Contractions in 10 Minutes Resting Tone [place]: Relaxed Heart Rate FHR Baseline Rate: 140 Monitor Mode: External US Variability: Moderate 6-25 bpm Accelerations: 10X10 Decelerations: None Category: Category I Datetime: 02/07/2017 11:40 Labor Evaluation Frequency: IRREG Monitor Mode: External Duration (sec)2399: 50-70 Pattern: Normal: <= 5 Contractions in 10 Minutes Resting Tone [place]: Relaxed Heart Rate FHR Baseline Rate: 135 Monitor Mode: External US Variability: Moderate 6-25 bpm Accelerations: 10X10 Decelerations: None Category: Category I Pain Assessment Pain Scale: 0 Pain Presence: None/Denies Pain Type: N/A Pain Goal: 3 Pain Relief Measures: Comfort Measures Datetime: 02/07/2017 11:29 Stage of : OB Triage Datetime: 02/07/2017 10:45 Stage of : OB Triage Datetime: 02/07/2017 10:25 Stage of : OB Triage Assessment Type: Triage Time of Arrival: 02/07/2017 10:10 EGA: 28.4 Arrived By: Ambulatory Arrived From: Home Chief Complaint: FOLLOW UP BPP/LOURDES CHOLESTASIS Movement: Present Contractions: Occasional Rupture of Membranes: Denies Vaginal Bleeding: None Vaginal Discharge: Denies Recent Sexual Intercouse: Denies Abdominal Trauma: Not Applicable Patient Complaints: Cramping Time Provider Notified: 02/07/2017 10:45 Provider Notified: LENA Initial Plan: MONITOR, BPP/LOURDES, IV HYDRATION, TERB, CBC, CMP, U/A, CL Maternal Assessment Level of Consciousness: Fully Conscious DTR's/Clonus: DTRs 2+; No Clonus Headache: Denies Blurred Vision: No Respiratory Effort: Unlabored; Regular Rhythm; Equal Expansion Breath Sounds, Left: Clear and Equal Breath Sounds, Right: Clear and Equal Nausea/Vomiting: Denies RUQ Epigastric Pain: Denies Facial Edema: None Temperature Route: Axillary Fall Risk Assessment History of Falling: (0) No Secondary Diagnosis: (0) No Ambulatory Aid: (0) Bedrest/Nurse Assist IV Therapy: (0) No Gait: (0) Normal/Bedrest/Immobile Mental Status: (0) Oriented to Own Ability Fall Score: 0 Fall Risk Score Definition: No Risk: No action required Labor Evaluation Frequency: X1 Monitor Mode: External Duration (sec)2399: 50 Quality: Mild Resting Tone [place]: Relaxed Heart Rate FHR Baseline Rate: 135 Monitor Mode: External US Variability: Moderate 6-25 bpm Accelerations: 10X10 Decelerations: None Category: Category I Pain Assessment Pain Scale: 0 Pain Presence: None/Denies Pain Type: N/A Pain Goal: 3 Pain Relief Measures: Comfort Measures Datetime: 02/04/2017 11:34 Stage of : OB Triage Time of Arrival: 02/04/2017 11:34 EGA: 28.1 Chief Complaint: Follow up Cholestasis Movement: Present Contractions: Denies/Absent Rupture of Membranes: Denies Vaginal Bleeding: None Vaginal Discharge: Denies Recent Sexual Intercouse: Denies Abdominal Trauma: Not Applicable Patient Complaints: None Time Provider Notified: 02/04/2017 11:36 Provider Notified: LENA Maternal Assessment Level of Consciousness: Fully Conscious DTR's/Clonus: DTRs 2+; No Clonus Headache: Denies Blurred Vision: No Breath Sounds, Left: Clear and Equal Breath Sounds, Right: Clear and Equal Nausea/Vomiting: Denies RUQ Epigastric Pain: Denies Facial Edema: None Labor Evaluation Frequency: 0 Monitor Mode: External Duration (sec)2399: 0 Resting Tone [place]: Relaxed Heart Rate FHR Baseline Rate: 150 Monitor Mode: External US FHR Baseline Changes: No Baseline Change Variability: Moderate 6-25 bpm Accelerations: 15X15 Decelerations: None Category: Category I Pain Assessment Pain Scale: 0 Pain Presence: None/Denies Pain Type: N/A Pain Goal: 0 Vaginal Exam Membrane Status: Intact Datetime: 01/31/2017 10:15 Fall Score: 0 Fall Risk Score Definition: No Risk: No action required Datetime: 01/31/2017 10:07 EGA: 27.4 Datetime: 01/29/2017 13:02 Fall Score: 0 Fall Risk Score Definition: No Risk: No action required Datetime: 01/29/2017 13:01 EGA: 27.2 Datetime: 01/28/2017 08:56 Fall Score: 0 Fall Risk Score Definition: No Risk: No action required Datetime: 01/28/2017 08:53 EGA: 27.1 Datetime: 01/24/2017 12:49 EGA: 26.4 Datetime: 12/24/2016 17:50 Fall Score: 0 Fall Risk Score Definition: No Risk: No action required Datetime: 12/24/2016 17:49 EGA: 22.1 Datetime: 12/12/2016 13:30 EGA: 20.3 Fall Score: 0 Fall Risk Score Definition: No Risk: No action required
== END 2017-02-11 13:10 | disposition home or self-care (01) ==
LOC: OBT 11:21 → L-D 11:21 → OBT 13:10
PROVIDERS: ATTEND Obstetrics & Gynecology
DX: O26.613 Liver and biliary tract disorders in pregnancy, third trimester (principal); K83.1 Obstruction of bile duct; Z3A.29 29 weeks gestation of pregnancy
CPT/HCPCS: 76818; Z7500; G0463

== ENCOUNTER 2017-02-14 14:57 | Outpatient (CLI) | payer BC ==
[~2017-02-14] VITALS: Ht 157.5 cm; Wt 54.1 kg
[~2017-02-14 14:57] MED LIST changes: +CALC600T11 PO
[2017-02-14 15:10] VITALS: BP 119/64; PULSE 89; RESP 19; Ht 157.5 cm; Wt 54.1 kg
--- NOTE | 2017-02-14 15:48 | RADRPT ---
PROCEDURE: US OB. CLINICAL INDICATION: Size and dates , abdominal pain TECHNIQUE: Multiple sonographic images of the pelvis and gravid uterus were obtained. The images were reviewed on a PACS workstation. COMPARISON: 02/11/17 FINDINGS: There is a single viable intrauterine gestation. Cardiac activity is present with 142 beats per min [place]. There is a vertex presentation. The placenta is posterior. There is no evidence for an abruption or placenta previa. Measurements were made in order to determine age. The results are as follows: BPD =7.4 cm HC =27.3 cm AC =25.4 cm FL =5.6 cm Estimated gestational age of approximately 29 weeks and 4 days based on ultrasound measurements. Clinical age: 29 weeks and 4 days. The estimated date of delivery is 04/28/17, based on ultrasound measurements. The EFW = 1417 g, 36.8%, based on LMP age. RPTAT: AA IMPRESSION: Single viable intrauterine gestation of approximately 29 weeks and 4 days based on ultrasound measu rements. .Jeferson Kearns MD, Date Time Electronically viewed and signed by .Jeferson Kearns MD, on 02/14/2017 15:48 .S/
--- NOTE | 2017-02-14 17:03 | RADRPT ---
PROCEDURE: US OB biophysical profile. CLINICAL INDICATION: decreased movements, abdominal pain TECHNIQUE: Multiple sonographic images of the pelvis were obtained. The images were reviewed on a PACS workstation. COMPARISON: 02/11/2017 FINDINGS: There is a single viable intrauterine gestation. Cardiac activity is present with 142 beats per min [place]. There is a vertex presentation. The placenta is posterior. There is no evidence of placental abruption. There is a normal amount of amniotic fluid with an LOUR[place] = 13.0 cm. Biophysical profile: movement 2/2 tone 2/2. breathing 2/2 LOURDES 2/2 Total 04/09 RPTAT: AA . IMPRESSION: Normal biophysical profile. . .Jeferson Kearns MD, MD Date Time Electronically viewed and signed by .Jeferson Kearns MD, MD on 02/14/2017 17:03 .S/
--- NOTE | 2017-02-14 17:11 | TRIAGE ---
OB Triage Datetime Report Generated by CPN: 02/14/2017 17:10 Datetime: 02/14/2017 16:50 Stage of : OB Triage Maternal Assessment Level of Consciousness: Fully Conscious DTR's/Clonus: DTRs 1+ Headache: Denies Breath Sounds, Left: Clear and Equal Breath Sounds, Right: Clear and Equal Nausea/Vomiting: Denies RUQ Epigastric Pain: Denies Labor Evaluation Frequency: NONE Monitor Mode: External Resting Tone [place]: Relaxed Heart Rate FHR Baseline Rate: 140 Monitor Mode: External US Variability: Moderate 6-25 bpm Accelerations: 15X15 Decelerations: None Category: Category I Pain Assessment Pain Scale: 0 Pain Presence: None/Denies Pain Type: N/A Pain Goal: 3 Vaginal Exam Membrane Status: Intact Datetime: 02/14/2017 16:05 Stage of : OB Triage Maternal Assessment Level of Consciousness: Fully Conscious DTR's/Clonus: DTRs 1+ Headache: Denies Breath Sounds, Left: Clear and Equal Breath Sounds, Right: Clear and Equal Nausea/Vomiting: Denies RUQ Epigastric Pain: Denies Labor Evaluation Frequency: NONE Monitor Mode: External Resting Tone [place]: Relaxed Heart Rate FHR Baseline Rate: 140 Monitor Mode: External US Variability: Moderate 6-25 bpm Accelerations: 15X15 Decelerations: None Category: Category I Pain Assessment Pain Scale: 0 Pain Presence: None/Denies Pain Type: N/A Pain Goal: 3 Vaginal Exam Membrane Status: Intact Datetime: 02/14/2017 15:22 Maternal Assessment Level of Consciousness: Fully Conscious DTR's/Clonus: DTRs 1+ Headache: Denies Blurred Vision: No Respiratory Effort: Unlabored Breath Sounds, Left: Clear and Equal Breath Sounds, Right: Clear and Equal Nausea/Vomiting: Denies RUQ Epigastric Pain: Denies Facial Edema: None Labor Evaluation Frequency: NONE Monitor Mode: External Resting Tone [place]: Relaxed Heart Rate FHR Baseline Rate: 140 Monitor Mode: External US Variability: Moderate 6-25 bpm Accelerations: 10X10 Decelerations: None Category: Category I Pain Assessment Pain Scale: 0 Pain Presence: None/Denies Pain Type: N/A Pain Goal: 3 Pain Assessment Comments: PT DENIES ANY ITCHING AT THIS TIME Vaginal Exam Membrane Status: Intact Datetime: 02/14/2017 15:00 Assessment Type: Triage Maternal Assessment Level of Consciousness: Fully Conscious DTR's/Clonus: DTRs 2+; No Clonus Headache: Denies Blurred Vision: No Respiratory Effort: Unlabored; Regular Rhythm; Equal Expansion Breath Sounds, Left: Clear and Equal Breath Sounds, Right: Clear and Equal Nausea/Vomiting: Denies RUQ Epigastric Pain: Denies Lower Extremities Edema: None Degree: None Upper Extremities Edema: None Degree: None Facial Edema: None Fall Risk Assessment History of Falling: (0) No Secondary Diagnosis: (0) No Ambulatory Aid: (0) Bedrest/Nurse Assist IV Therapy: (0) No Gait: (0) Normal/Bedrest/Immobile Mental Status: (0) Oriented to Own Ability Fall Score: 0 Fall Risk Score Definition: No Risk: No action required Datetime: 02/14/2017 14:55 Time of Arrival: 02/14/2017 14:55 EGA: 29.4 Arrived By: Ambulatory Arrived From: Office Chief Complaint: PT CAME IN FROM [facility] OFFICE TO HAVE A F/U NST AND BPP FOR CHOLESTASIS Movement: Present Contractions: Denies/Absent Rupture of Membranes: Denies Vaginal Discharge: Denies Recent Sexual Intercouse: Denies Abdominal Trauma: Not Applicable Additional Patient Complaints: NONE Time Provider Notified: 02/14/2017 15:10 Provider Notified: LENA Initial Plan: NST AND BPP Datetime: 02/11/2017 13:41 Fall Score: 0 Fall Risk Score Definition: No Risk: No action required Datetime: 02/11/2017 13:09 EGA: 29.1 Datetime: 02/11/2017 12:50 Labor Evaluation Frequency: IRREG Monitor Mode: External Duration (sec)2399: 30-70 Pattern: Normal: <= 5 Contractions in 10 Minutes Heart Rate FHR Baseline Rate: 145 Monitor Mode: External US Variability: Moderate 6-25 bpm Accelerations: 15X15 Decelerations: None Category: Category I Datetime: 02/11/2017 12:26 Labor Evaluation Frequency: 0 Monitor Mode: External Duration (sec)2399: 0 Heart Rate FHR Baseline Rate: 145 Monitor Mode: External US Variability: Moderate 6-25 bpm Accelerations: 15X15 Decelerations: None Category: Category I Comments: NST REACTIVE FOR GESTATIONAL AGE Datetime: 02/07/2017 10:25 EGA: 28.4 Fall Score: 0 Fall Risk Score Definition: No Risk: No action required Datetime: 02/04/2017 11:34 EGA: 28.1 Datetime: 01/31/2017 10:15 Fall Score: 0 Fall Risk Score Definition: No Risk: No action required Datetime: 01/31/2017 10:07 EGA: 27.4 Datetime: 01/29/2017 13:02 Fall Score: 0 Fall Risk Score Definition: No Risk: No action required Datetime: 01/29/2017 13:01 EGA: 27.2 Datetime: 01/28/2017 08:56 Fall Score: 0 Fall Risk Score Definition: No Risk: No action required Datetime: 01/28/2017 08:53 EGA: 27.1 Datetime: 01/24/2017 12:49 EGA: 26.4 Datetime: 12/24/2016 17:50 Fall Score: 0 Fall Risk Score Definition: No Risk: No action required Datetime: 12/24/2016 17:49 EGA: 22.1 Datetime: 12/12/2016 13:30 EGA: 20.3 Fall Score: 0 Fall Risk Score Definition: No Risk: No action required
--- NOTE | 2017-02-14 18:33 | PN ---
Triage Information Date/Time Weeks of Gestation Patient is 1 para 0 at 29+4 weeks of gestation with cholestasis currently on Actigal She is here for NST and biophysical profile She reports positive movement : 1 Para: 0 Diabetes: none Hypertention: none Additional information Bile acid 7.9 Objective Vital Signs Date Time Temp Pulse Resp B/P Pulse Ox O2 Delivery O2 Flow Rate FiO2 02/14/17 15:10 98.8 89 19 119/64 99 Room Air Heart Rate: 140's Heart Rate Comments Reactive Contractions: None Results/Medications Imaging Results PROCEDURE: US OB biophysical profile. CLINICAL INDICATION: decreased movements, abdominal pain TECHNIQUE: Multiple sonographic images of the pelvis were obtained. The images were reviewed on a PACS workstation. COMPARISON: 02/11/2017 FINDINGS: There is a single viable intrauterine gestation. Cardiac activity is present with 142 beats per minute. There is a vertex presentation. The placenta is posterior. There is no evidence of placental abruption. There is a normal amount of amniotic fluid with an LOURDES = 13.0 cm. Biophysical profile: movement 2/2 tone 2/2. breathing 2/2 LOURDES 2/2 Total 04/09 RPTAT: AA . IMPRESSION: Normal biophysical profile. . .Jeferson Kearns MD, Date Time Electronically viewed and signed by .Jeferson Kearns MD, on 02/14/2017 17: 03 .S/ CC: CAROL GRIGGS MD PROCEDURE: US OB. CLINICAL INDICATION: Size and dates , abdominal pain TECHNIQUE: Multiple sonographic images of the pelvis and gravid uterus were obtained. The images were reviewed on a PACS workstation. COMPARISON: 02/11/17 FINDINGS: There is a single viable intrauterine gestation. Cardiac activity is present with 142 beats per minute. There is a vertex presentation. The placenta is posterior. There is no evidence for an abruption or placenta previa. Measurements were made in order to determine age. The results are as follows: BPD = 7.4 cm HC = 27.3 cm AC = 25.4 cm FL = 5.6 cm Estimated gestational age of approximately 29 weeks and 4 days based on ultrasound measurements. Clinical age: 29 weeks and 4 days. The estimated date of delivery is 04/28/17, based on ultrasound measurements. The EFW = 1417 g, 36.8%, based on LMP age. RPTAT: AA IMPRESSION: Single viable intrauterine gestation of approximately 29 weeks and 4 days based on ultrasound measurements. .Jeferson Kearns MD, MD Date Time Electronically viewed and signed by .Jeferson Kearns MD, MD on 02/14/2017 15: 48 .S/ CC: CAROL GRIGGS MD Assessment/Plan NST is reactive Biophysical profile 8 out of 8 Patient instructed to return for repeat NST and biophysical profile in 2 days MARY ALICE DELGADO MD Feb 14, 2017 18:33
== END 2017-02-14 17:05 | disposition home or self-care (01) ==
LOC: OBT 14:57 → L-D 14:58 → OBT 17:05
PROVIDERS: ATTEND Obstetrics & Gynecology
DX: O26.613 Liver and biliary tract disorders in pregnancy, third trimester (principal); K83.1 Obstruction of bile duct; O36.8130 Decreased fetal movements, third trimester, not applicable or unspecified; O26.843 Uterine size-date discrepancy, third trimester; Z3A.29 29 weeks gestation of pregnancy
CPT/HCPCS: 76815; 76818; Z7500; G0463

== ENCOUNTER 2017-03-05 22:01 | Inpatient (IN) | payer BC, OTHER ==
[~2017-03-05] VITALS: Ht 157.5 cm; Wt 65.2 kg
[2017-03-05] MEDS ORDERED: MAGNESIUM SULFATE 4 GM/100 ML 100 ML ONE (23:19)
[2017-03-05] MEDS: LACTATED RINGER'S 1,000 ML IV SCH (23:26)
[2017-03-05] MEDS ORDERED: AZITHROMYCIN 250 MG TAB PO ONE (23:30)
[2017-03-05] MEDS ORDERED: BETAMET NA PHOS/AC(6 MG/ML) 5ML INJ IM SCH (23:30)
[2017-03-05] MEDS ORDERED: MAGNESIUM SULFATE 4 GM/100 ML 100 ML IVPB ONE (23:30)
[2017-03-05] MEDS ORDERED: MAGNESIUM SULFATE 20 GM/500 ML 500 ML IV SCH (23:30)
[2017-03-05 23:34] LABS: ADD SCAN DIFF NO; BASOPHIL # 0.1 10^3/ul (0.0-0.1); BASOPHILS % 0.6 % (0.0-2.0); EOSINOPHILS # 0.1 10^3/ul (0.0-0.5); EOSINOPHILS % 0.9 % (0.0-7.0); HEMATOCRIT 35.3 % (37.0-47.0); HEMOGLOBIN 12.1 g/dl (12.0-16.0); LYMPHOCYTES # 3.1 10^3/ul (0.8-2.9); LYMPHOCYTES % 20.7 % (15.0-51.0); MEAN CORPUSCULAR HEMOGLOBIN 31.9 pg (29.0-33.0); MEAN CORPUSCULAR HGB CONC 34.3 g/dl (32.0-37.0); MEAN CORPUSCULAR VOLUME 93.1 fl (82.0-101.0); MEAN PLATELET VOLUME 10.7 fl (7.4-10.4); MONOCYTE # 1.1 10^3/ul (0.3-0.9); MONOCYTES % 7.5 % (0.0-11.0); NEUTROPHILS % 67.5 % (39.0-77.0); PLATELET COUNT 286 10^3/UL (140-415); RED BLOOD COUNT 3.79 10^6/ul (4.20-5.40); RED CELL DISTRIBUTION WIDTH 11.9 % (11.5-14.5); WHITE BLOOD COUNT 14.8 10^3/ul (4.8-10.8)
--- NOTE | 2017-03-05 23:36 | HP ---
Date/Time of Note Date/Time of Note DATE: 03/05/17 TIME: 23:34 OB - History Hx of Present Free Text/Dictation 32+wks GA PPROM cholestasis of pregnacy : 2 Para: 0 Care: Good Care Ultrasounds: Normal mid trimester US Obstetrical Complications: Other (cholestasis of ) Past Family/Social History * Past Medical, Surgical, Family and Obstetric Histories reviewed from chart. OB Admission Exam Physical Exam Abdomen: WNL Extremities: Normal Cervical Dilatation: None Effacement: 0% Station: Ballotable Membranes: Ruptured Heart Rate: 140's Accelerations: Accelerations Present Decelerations: No Decelerations Varibility: Moderate Contractions on Admission: 6-10 Minutes Apart OB Assessment/Plan Reason for admission: observation, labor Plan: Expectant Management Other plan: Prenatalogy consult Neonatalogy comnsult EFW CXL LOURDES Mg 4gram and then 2gr/h Steroids Antibiotics BOBBY FLORENCE M.D. Mar 05, 2017 23:36
[2017-03-05 23:37] LABS: INR 0.91; PROTIME 12.2 Sec (12.2-14.2)
[2017-03-05 23:38] LABS: PARTIAL THROMBOPLASTIN TIME 28.9 Sec (25.0-35.0)
[2017-03-06] MEDS: AMPICILLIN 2 GM/NS (PMX) 100 ML IVPB SCH ×2 (00:24→05:54)
--- NOTE | 2017-03-06 00:29 | RADRPT ---
PROCEDURE: US OB biophysical profile. CLINICAL INDICATION: decreased movements TECHNIQUE: Multiple sonographic images of the pelvis were obtained. The images were reviewed on a PACS workstation. COMPARISON: No pertinent prior examinations were submitted for comparison. FINDINGS: There is a single viable intrauterine gestation. Cardiac activity is present with 139 beats per min [place]. There is a vertex presentation. The placenta is posterior, grade 2 in appearance. There is a normal amount of amniotic fluid with an LOURDES = 11.5 cm. The cervix is funneled and shortened, measuring 5 mm in length. Biophysical profile: movement 2/2 tone 2/2. breathing 2/2 LOURDES 2/2 Total 04/09 IMPRESSION: Normal biophysical profile. Shortened cervix measuring only 5 mm. RPTAT: HIKT . .Deandre King MD, Date Time Electronically viewed and signed by .Deandre King MD, on 03/06/2017 00:29 .T/
--- NOTE | 2017-03-06 00:31 | RADRPT ---
PROCEDURE: US OB ESTIMATED WEIGHT. CLINICAL INDICATION: Leaking. TECHNIQUE: Multiple sonographic images of the pelvis were obtained. The images were reviewed on a PACS workstation. COMPARISON: No pertinent prior examinations were submitted for comparison. FINDINGS: There is a single live intrauterine gestation. Cardiac activity is present with 131 beats per minut e. There is a vertex presentation. Measurements were made in order to determine age. The results are as follows: BPD =7.9 cm = 31 weeks 4 days HC =28 cm = 31 weeks 0 days AC =27 cm = 31 weeks 1 day FL =6.3 cm = 32 weeks 4 days Estimated gestational age of approximately 31 weeks 4 days. The estimated date of delivery is 05/04/2017. The EFW = 1801 g. 20.5% This examination was not performed for anatomy. The placenta is posterior, grade 2 in appearance. There is no evidence for an abruption or placenta previa. IMPRESSION: EFW = 1801 g. RPTAT: HIKT .Deandre King MD, MD Date Time Electronically viewed and signed by .Deandre King MD, on 03/06/2017 00:31 .T/
[2017-03-06 00:35] LABS: ADD UMIC YES; UR ASCORBIC ACID NEGATIVE (NEGATIVE); UR BILIRUBIN (Dip) NEGATIVE (NEGATIVE); UR BLOOD (Dip) NEGATIVE (NEGATIVE); UR CLARITY CLEAR (CLEAR); UR COLOR YELLOW (YELLOW); UR GLUCOSE (Dip) NEGATIVE (NEGATIVE); UR KETONES (Dip) NEGATIVE (NEGATIVE); UR LEUKOCYTE ESTERASE (Dip) TRACE Leu/ul (NEGATIVE); UR NITRITE (Dip) NEGATIVE (NEGATIVE); UR RBC 2 /HPF (0-5); UR SPECIFIC GRAVITY (Dip) 1.012 (1.003-1.030); UR TOTAL PROTEIN (Dip) NEGATIVE (NEGATIVE); UR UROBILINOGEN (Dip) NEGATIVE (NEGATIVE)
[2017-03-06 01:01] VITALS: Ht 157.5 cm; Wt 65.2 kg
[2017-03-06 01:05] VITALS: BP 125/66; PULSE 76; RESP 20
[2017-03-06 01:44] LABS: BARBITURATES Negative (NEGATIVE); BENZODIAZEPINES Negative (NEGATIVE); CANNABINOIDS Negative (NEGATIVE); COCAINE Negative (NEGATIVE); OPIATES Negative (NEGATIVE)
[2017-03-06] MEDS ORDERED: BUTORPHANOL 2 MG INJ IV PRN (03:00)
[2017-03-06] MEDS ORDERED: MAGNESIUM SULFATE 20 GM/500 ML 500 ML IV SCH (04:00)
[2017-03-06] MEDS: LACTATED RINGER'S 1,000 ML IV SCH (05:59)
[2017-03-06] MEDS ORDERED: MINERAL OIL LIGHT 10 ML VIAL TOP ONE (08:00)
[2017-03-06] MEDS ORDERED: LIDOCAINE 1% (MPF) 30 ML INJ INJ PRN ×2 (08:00→08:30)
[2017-03-06] MEDS ORDERED: OXYTOCIN 30 UNITS/LR 500 ML IV SCH ×2 (08:30)
[2017-03-06] MEDS ORDERED: COLESEVELAM 625 MG TAB PO SCH (09:00)
[2017-03-06] MEDS ORDERED: URSODIOL 300 MG CAP PO SCH (09:00)
[2017-03-06] MEDS ORDERED: METHYLERGONOVINE 0.2 MG TAB PO PRN (10:00)
[2017-03-06] MEDS ORDERED: ZOLPIDEM 5 MG TAB PO PRN (10:00)
[2017-03-06] MEDS ORDERED: CARBOPROST 250 MCG INJ IM PRN (10:00)
[2017-03-06] MEDS ORDERED: OXYTOCIN 30 UNITS/LR 500 ML IV PRN (10:00)
[2017-03-06] MEDS ORDERED: LANOLIN 7 GM TUBE TOP PRN (10:00)
[2017-03-06] MEDS ORDERED: morphine 2 MG INJ IV PRN (10:00)
[2017-03-06] MEDS ORDERED: METHYLERGONOVINE 0.2 MG INJ IM PRN (10:00)
[2017-03-06] MEDS ORDERED: ACETAMINOPHEN/CODEINE #3 TAB PO PRN (10:00)
[2017-03-06] MEDS ORDERED: DIPHENHYDRAMINE 25 MG CAP PO PRN (10:00)
[2017-03-06] MEDS ORDERED: ACETAMINOPHEN 325 MG TAB PO PRN (10:00)
[2017-03-06] MEDS ORDERED: ONDANSETRON 4 MG INJ IV PRN (10:00)
[2017-03-06] MEDS ORDERED: MISOPROSTOL 200 MCG TAB PR PRN (10:00)
--- NOTE | 2017-03-06 10:00 | LDN ---
Date/Time of Note Date/Time of Note DATE: 03/06/17 TIME: 09:55 Delivery Summary I was called to attend delivery due to non availability of the attending physician and patient's urge to push; 32 weeks. PPROM, currently on Magnesium for tocolysis , s/p Ampicillin and Azithromycin for latency.s/p one dose of steroid. Broke through tocolysis NICU team were notified, Urge to push. Complete. due to deceleration in second stage of labor at 3 + station, A right mediolateral episiotomy done to faciliate faster delivery of the baby, Weeks of Gestation 32 + weeks Placenta Delivered: Spontaneously Meconium: none Episiotomy: Yes Indication for episiotomy Feral heart decelerations in second stage of labor to expedite delivery Anesthesia type: None Estimated blood loss: 300 Sponge & Needle done & correct: Yes All needle counts correct: Yes Any foreign bodies felt in the: No Problems: Infant Delivery Information Sex Sex: male Apgars 1 Minute: 8 5 Minute: 9 Suctioning Nose & mouth suctioned at [place]: Yes Delee suction performed: Yes Umbilical Cord Cord presentations: no nuchal cord Cord Blood was obtained: Yes Mother & Baby Disposition Disposition Due to prematurity and good at delivery, Delayed cord clamping done for about one min baby was then handed to the RT and nursing team who were present in delivery room at the time of delivery. Placenta evaluated. complete. sent for culture and path MARIA ELENA HAMPTON MD Mar 06, 2017 10:00
[2017-03-06 10:45] VITALS: BP 135/75; PULSE 81; RESP 18
[2017-03-06] MEDS: WITCH HAZEL/GLYCERIN PAD PR PRN (10:59)
[2017-03-06] MEDS: LACTATED RINGER'S 1,000 ML IV* SCH ×2 (11:03→18:00)
[2017-03-06] MEDS: IBUPROFEN 600 MG TAB PO SCH ×2 (12:08→18:05)
[2017-03-06] MEDS: COLESEVELAM 625 MG TAB PO SCH ×3 (12:08→21:11)
[2017-03-06] MEDS: URSODIOL 300 MG CAP PO SCH ×2 (13:00→21:11)
[2017-03-06 16:20] VITALS: BP 117/55; PULSE 87; RESP 18
[2017-03-06 20:00] VITALS: BP 116/65; PULSE 88; RESP 18
[2017-03-06] MEDS: SENNA/DOCUSATE NA (8.6MG/50MG) TAB PO SCH (21:11)
[2017-03-07] VITALS: BP 110/65; PULSE 67; RESP 18
[2017-03-07] MEDS: LACTATED RINGER'S 1,000 ML IV* SCH ×3 (01:30→18:00)
[2017-03-07 04:00] VITALS: BP 119/60; PULSE 67; RESP 18
[2017-03-07] MEDS: IBUPROFEN 600 MG TAB PO SCH ×4 (06:13→17:57)
[2017-03-07 07:30] VITALS: BP 116/63; PULSE 63; RESP 20
[2017-03-07 07:43] LABS: ADD SCAN DIFF NO
[2017-03-07 07:53] LABS: BASOPHIL # 0.1 10^3/ul (0.0-0.1); BASOPHILS % 0.4 % (0.0-2.0); EOSINOPHILS % 0.2 % (0.0-7.0); HEMATOCRIT 31.8 % (37.0-47.0); HEMOGLOBIN 10.6 g/dl (12.0-16.0); LYMPHOCYTES # 3.5 10^3/ul (0.8-2.9); LYMPHOCYTES % 19.4 % (15.0-51.0); MEAN CORPUSCULAR HEMOGLOBIN 31.6 pg (29.0-33.0); MEAN CORPUSCULAR HGB CONC 33.3 g/dl (32.0-37.0); MEAN CORPUSCULAR VOLUME 94.9 fl (82.0-101.0); MEAN PLATELET VOLUME 10.5 fl (7.4-10.4); MONOCYTE # 1.4 10^3/ul (0.3-0.9); MONOCYTES % 7.7 % (0.0-11.0); NEUTROPHIL # 12.8 10^3/ul (1.6-7.5); NEUTROPHILS % 70.2 % (39.0-77.0); PLATELET COUNT 291 10^3/UL (140-415); RED BLOOD COUNT 3.35 10^6/ul (4.20-5.40); RED CELL DISTRIBUTION WIDTH 12.1 % (11.5-14.5); WHITE BLOOD COUNT 18.2 10^3/ul (4.8-10.8)
[2017-03-07] MEDS: COLESEVELAM 625 MG TAB PO SCH ×4 (08:18→21:37)
[2017-03-07] MEDS: SENNA/DOCUSATE NA (8.6MG/50MG) TAB PO SCH ×2 (08:19→21:37)
[2017-03-07] MEDS: URSODIOL 300 MG CAP PO SCH ×3 (08:19→21:37)
[2017-03-07] MEDS: MULTIVIT/MIN/FOLATE/IRON/PREN TAB PO SCH (08:19)
[2017-03-07 10:45] LABS: RUBELLA ANTIBODY - IGG 6.39 index
[2017-03-07 16:15] VITALS: BP 122/58; PULSE 61; RESP 18
[2017-03-07 19:40] VITALS: BP 114/52; PULSE 64; RESP 15
--- NOTE | 2017-03-07 21:35 | DS ---
Date/Time of Note Date/Time of Note home next day DATE: 03/07/17 TIME: 21:32 Obstetrical Discharge Record Final Diagnosis Final Diagnosis: delivered Other Final Diagnosis S/P labor Vaginal Delivery Obstetrical Delivery: Spontaneous Complications Labor Tocolytics: Magnesium Sulfate Condition on Discharge Physical Assessment Last Vitals: see nurses notes Voiding: Yes Bowel Movement: Yes Breast: Soft, non-tender, Filling Fundus: Firm Abdomen and Incision: soft BS + Episiotomy: healing Calf Tenderness: No Patient Condition: Good CAROL GRIGGS MD Mar 07, 2017 21:35
--- NOTE | 2017-03-07 21:36 | PD.PPDC ---
GLOBAL RISK MANAGEMENT DIRECTOR Discharge Instruction Provider Information Physician Information 27 y/o female admitted for labor and had vaginal delivery Diagnosis Final Diagnosis: S/P labor Condition Patient Condition: Good Diet Diet: Resume Regular Diet Activity/Restrictions Activity: Normal Activity May Shower Restrictions: Nothing in the Vagina Return to Work or School: Apr 22, 2017 Follow-up Follow-up with Physician: 4, Week/Weeks (in clinic ) Return to clinic for OB Instructions: Breast Tenderness Depression CAROL GRIGGS MD Mar 07, 2017 21:36
[2017-03-07] MEDS ORDERED: IBUP-1542 PO (21:38)
[2017-03-08] MEDS: IBUPROFEN 600 MG TAB PO SCH ×3 (00:29→11:47)
[2017-03-08] MEDS: LACTATED RINGER'S 1,000 ML IV* SCH (01:00)
[2017-03-08] MEDS: WITCH HAZEL/GLYCERIN PAD PR PRN (05:04)
[2017-03-08 05:20] VITALS: BP 124/66; PULSE 52; RESP 16
[2017-03-08 08:34] VITALS: BP 126/63; PULSE 61; RESP 20
[2017-03-08 08:44] LABS: ADD SCAN DIFF NO
[2017-03-08 08:48] LABS: ABNORMAL IP MESSAGE 1; BASOPHIL # 0.1 10^3/ul (0.0-0.1); BASOPHILS % 0.6 % (0.0-2.0); EOSINOPHILS # 0.2 10^3/ul (0.0-0.5); EOSINOPHILS % 1.3 % (0.0-7.0); HEMATOCRIT 38.6 % (37.0-47.0); HEMOGLOBIN 12.1 g/dl (12.0-16.0); LYMPHOCYTES # 4.8 10^3/ul (0.8-2.9); MEAN CORPUSCULAR HEMOGLOBIN 30.7 pg (29.0-33.0); MEAN CORPUSCULAR HGB CONC 31.3 g/dl (32.0-37.0); MEAN PLATELET VOLUME 10.8 fl (7.4-10.4); MONOCYTE # 0.9 10^3/ul (0.3-0.9); MONOCYTES % 6.6 % (0.0-11.0); NEUTROPHIL # 6.8 10^3/ul (1.6-7.5); NEUTROPHILS % 50.3 % (39.0-77.0); PLATELET COUNT 313 10^3/UL (140-415); RED BLOOD COUNT 3.94 10^6/ul (4.20-5.40); RED CELL DISTRIBUTION WIDTH 12.3 % (11.5-14.5); WHITE BLOOD COUNT 13.4 10^3/ul (4.8-10.8)
[2017-03-08] MEDS: URSODIOL 300 MG CAP PO SCH (09:00)
[2017-03-08] MEDS ORDERED: DIPHTH/TET/ACEL PERTUSS (ADULT) 0.5 ML VIAL IM* ONE (09:00)
[2017-03-08] MEDS: SENNA/DOCUSATE NA (8.6MG/50MG) TAB PO SCH (09:00)
[2017-03-08] MEDS ORDERED: MEASLES,MUMPS,RUBELLA VACCINE INJ SC* ONE (09:00)
[2017-03-08] MEDS: MULTIVIT/MIN/FOLATE/IRON/PREN TAB PO SCH (11:45)
== END 2017-03-08 14:00 | disposition home or self-care (01) | DRG 775 ==
LOC: OBT 22:01 → L-D 22:05 → OBT 22:44 → L-D 03-06 00:46 → PP1 03-06 10:27
PROVIDERS: ADMIT Obstetrics & Gynecology; ATTEND Obstetrics & Gynecology
PROC: 10E0XZZ Delivery of Products of Conception, External Approach (ICD-10-PCS; principal; 2017-03-06)
PROC: 0W8NXZZ Division of Female Perineum, External Approach (ICD-10-PCS; 2017-03-06)
DX: O26.62 Liver and biliary tract disorders in childbirth (principal); K83.1 Obstruction of bile duct; O76 Abnormality in fetal heart rate and rhythm complicating labor and delivery; Z37.0 Single live birth; Z3A.32 32 weeks gestation of pregnancy
CPT/HCPCS: 36415; 76815; 76817; 76818; 80307; 81001; 82731; 83735; 84112; 85025; 85610; 85730; 86592; 86762; 86900; 86901; 87070; 87340; 88307; 90715; 99464; G0463; J0290; J0595; J0702; J3475; J7120